=== PATIENT | female | born 1945 | race Caucasian/White ===

== ENCOUNTER 2024-08-26 14:12 | Inpatient (IN) | payer MEDICARE, OTHER, SELFPAY ==
[2024-08-26] VITALS (16 sets, daily range): BP systolic 113–152; BP diastolic 45–75; BMI 28.8
--- NOTE | 2024-08-26 08:03 | ED.GENMED ---
History of Present Illness
General
Chief Complaint: Chest Pain
Time Seen by Provider: 08/26/24 08:03
History of Present Illness
History of Present Illness:
TIME OF INITIAL ENCOUNTER: 8:05 AM
HPI: The patient presents with shortness of breath over the past week and feels somewhat improved after she was given steroids by her general practitioner. She was feeling improved when she was on steroids. The symptoms of shortness of breath
worsen when she exerts herself. Today she developed chest pressure and the chest pain resolved after she received nitroglycerin and aspirin by EMS. She states that she had a coronary catheterization about 15 years ago and she reports it being
normal. She has some minimal ankle swelling intermittently but not currently.
EXAM:
GENERAL: Well appearing in mild distress related to increased work of breathing
HEENT: Moist oral mucosa
CARDIOVASCULAR: No murmurs, normal heart rate, regular rhythm, No chest wall tenderness
PULMONARY: Slightly increased work of breathing and borderline tachypneic, decreased breath sounds equally without wheeze
ABDOMEN: Soft with no peritoneal signs, no tenderness
NEUROLOGIC: Good strength all extremities, no coordination deficits
PSYCHIATRIC: Appropriate mental status, normal insight and judgement
EXTREMITIES: Nontender, no edema particularly no ankle edema, no calf tenderness, moves all extremities equally
SKIN: No rash, no lesions
NUMBER AND COMPLEXITY OF PROBLEMS ADDRESSED AT THE ENCOUNTER
� Chronic conditions affecting care: COPD/former smoker, hyperlipidemia, diabetes, multiple abdominal surgeries
� Acute Exacerbation and/or Progression of Chronic Illness: This is an acute problem
� Differential Diagnosis includes: COPD exacerbation, ACS pneumonia, bronchitis
AMOUNT AND/OR COMPLEXITY OF DATA TO BE REVIEWED AND ANALYZED
� I performed an independent evaluation of and my interpretation is:
EKG: Sinus 91, inferior ST abnormality slightly more prominent in comparison to 08/04/2022
CT:
X-rays: Chest x-ray shows no acute abnormality, hyperaeration again seen
Laboratory Studies: White count hemoglobin normal, chemistries unremarkable with exception of glucose of 193, troponin 0.108
Other:
� Review of other/old records: I reviewed records, the patient was admitted for COPD exacerbation and July 2022 and at that time received both steroids and antibiotics. Echo showed an EF of 50 to 55% with no wall motion
abnormalities in July 2022
� Clinical information was obtained by an independent historian: None needed, but I did speak to family at bedside
� Prescriptions/Medications Considered but not given:
� Further testing considered but not performed:
RISK OF COMPLICATIONS AND/OR MORBIDITY OR MORTALITY OF PATIENT MANAGEMENT
� Social determinants of health affecting care: Lives at home
� Discussion with other providers: Given the slightly abnormal EKG, I notified Dr. Christensen at 8:24 AM. He has agreed to evaluate the patient in the emergency department�since troponin elevated with abnormal EKG, he recommends
treating as ACS. Hospitalist for admission.
� Escalation of care including admission/observation vs risk of discharge considered: Patient presents with shortness of breath in the setting of COPD as well as chest tightness that resolved with nitroglycerin (and received
aspirin by EMS) and has a slightly changed EKG.
ANY OTHER UPDATES:
9 AM: Troponin elevated. However, patient is chest pain free after receiving nitroglycerin by EMS. Family does report a remote history of bleeding ulcer but will place on heparin for now. Her hemoglobin is normal. She denies any rectal bleeding
recently. We also tried DuoNeb and steroids.
Past History
Past History
ED Past Medical History: COPD, Hypercholesterolemia and NIDDM
ED Past Surgical History: Appendectomy, Cholecystectomy, Gynecological and Tonsilectomy
Social History
Tobacco: Former smoker
Alcohol: Occasional
Drug: None
Personal:
Living: with family
Employment: Retired
Family History
Family History: Other (Noncontributory)
Phy Exam
Physical Exam
Physical Exam:
See HPI
Scores
Heart Score for Chest Pain Patients
STEMI patient?: No
History: Moderately Suspicious
ECG: Nonspecific Repolarization
Age: >/= 65 years
Risk Factors: >/= 3 Risk Factors or History of CAD
Troponin: >/= 3 x Normal Limit
Heart Score for Chest Pain Patients: 8
Heart Score Risk: 72.7 % MACE over next 6 weeks
Course
Orders/Labs/Results
Orders:
Orders
08/26/24 08:01
EKG [Electrocardiogram (*1)] Urgent
Reason for Study: Chest Pain
CXR2 [CR Chest - 2 Views ] Urgent
Comment:
Reason For Exam: chest pain
08/26/24 08:02
EKG- Treatment ONCE
08/26/24 08:13
Ipratropium/Albuterol Sulfate [Duoneb] 3 ml INH R NOW STA
MethylPREDNISolone PF [Solu-Medrol Pf] 125 mg IV NOW STA
08/26/24 08:15
PTT Urgent
Comment: Obtain baseline before beginning heparin infusion if not already collected
08/26/24 08:22
CMP [Comprehensive Metabolic Panel] Urgent
Complete Blood Count/With Diff Urgent
NT-proBNP Urgent
Troponin I Urgent
08/26/24 08:30
EKG- Treatment ONCE
08/26/24 09:00
Electrocardiogram (*1) Urgent
Reason for Study: Chest Pain
Other Reason for Exam: repeat, abnormal ekg
08/26/24 09:04
Heparin 4,000 units IV NOW STA
Nursing to Place Non Medication Order As Directed
Physician Order: PTT 6 hours after initial start of Heparin infusion
08/26/24 09:15
Heparin 55081 Units/250 ml 25,000 units in 250 ml IV PER PROTOCOL
Weight to be used for heparin protocol in kilograms (kg):: 74.8
Protocol:: Cardiac Tx/Acute Coronary
PTT Goal Range to be used:: PTT 73 to 111 seconds
Order type:: Initial
INITIAL Infusion Dose (UNITS/KG/hr) & then follow protocol:: 12 units/kg/hr
Infusion Dose in UNITS/hr & then follow protocol (UNITS/hr):: 900
INFUSION RATE in mL/hr & then follow protocol (mL/hr):: 9
PTT less than or equal to 64 seconds:: Increase rate by 200 units/hr (+ 2 mL/hr)
PTT 64.1 to 72.9 seconds:: Increase rate by 100 units/hr (+ 1 mL/hr)
PTT 73 to 111 seconds:: Target Range. No change in rate.
PTT 111.1 to 130.9 seconds:: Decrease rate by 100 units/hr (- 1 mL/hr)
PTT 131 to 199.9 seconds:: HOLD for 1 hr. Then decrease rate by 200 units/hr (- 2 mL/hr)
PTT greater than or equal to 200 seconds:: HOLD for 2 hrs & Notify Provider. Then decrease by 200 units/hr (-
2 mL/hr)
Lab follow-up:: Each change, PTT q6h until 2 consecutive are therapeutic. Then PTT
daily.
Abnormal Lab Results
08/26/24
08:22
Hct 35.8 L %
(37.0-47.0)
Absolute Lymphs (auto) 0.7 L 10^3/uL
(1.2-3.4)
Absolute Monos (auto) 0.7 H 10^3/uL
(0.1-0.6)
Lymphocytes % 12.0 L %
(20.5-51.1)
Monocytes % 11.4 H %
(1.7-9.3)
Glucose 193 H mg/dl
(70-99)
Troponin I 0.108 H* ng/ml
Total Protein 6.1 L g/dl
(6.3-8.2)
08/26/24 08:22
08/26/24 08:22
Vital Signs
Initial and Last Documented VS:
Initial Vital Signs
Temp Pulse Resp BP Pulse Ox
36.6 C 90 22 113/60 97
08/26/24 08:02 08/26/24 08:02 08/26/24 08:02 08/26/24 08:02 08/26/24 08:02
Last Documented Vital Signs
Temp Pulse Resp BP Pulse Ox
36.6 C 88 19 113/60 98
08/26/24 08:02 08/26/24 08:15 08/26/24 08:15 08/26/24 08:05 08/26/24 08:16
*Critical Care Note
Total Time (30-74mins, 75-104mins- exclusive of procedures): Not Applicable
ED Attending Note
-
Portions of this chart may have been created with voice recognition software.� Occasional wrong word or��sound alike� substitutions may have occurred due to the inherent limitations of voice recognition software.
Discharge Plan
Departure
Patient Disposition: Admit
Date of Disposition: 08/26/24
Time of Disposition: 09:23
Presentation/result/management discussed w/ accepting MD/DO: Hospitalist
Discharge Problem:
Acute coronary syndrome
Prescriptions:
No Action
cholestyramine (with sugar) 378 GM powder
1 dose PO DAILY
promethazine-DM 6.25-15 mg/5 mL syrup
5 ml PO QID PRN (Reason: cough)
metformin 500 mg Tablet
500 mg PO DAILY 30 Days Qty: 30 0RF
atorvastatin 20 mg Tablet
20 mg PO QPM 30 Days Qty: 30 0RF
Spiriva Respimat 2.5 mcg/actuation Mist
2 puff inhalation R DAILY 30 Days Qty: 1 0RF
doxycycline hyclate 100 mg Capsule
100 mg PO Q12H 2 Days Qty: 4 0RF
albuterol sulfate 2.5 mg /3 mL (0.083 %) Solution For Nebulization
2.5 mg inhalation R Q4HPRN PRN (Reason: SOB, COUGH, WHEEZE) 30 Days Qty: 1 0RF
amlodipine 5 mg tablet
5 mg PO DAILY 30 Days Qty: 30 0RF
prednisone 10 mg Tablet
See Rx Instructions .ROUTE .COMPLEX Qty: 25 0RF
Rx Instructions:
Take By Mouth:
40 mg daily x2 days, 30 mg daily x2 days,
20 mg daily x2 days, 10 mg daily x2 days.
albuterol sulfate 90 mcg/actuation Hfa Aerosol Inhaler
2 puff INHALATION R Q6 PRN (Reason: sob/wheezing) 30 Days Qty: 1 0RF
fluticasone furoate-vilanterol 200-25 mcg/dose blister with device
1 inh INHALATION R DAILY 30 Days Qty: 1 0RF
Interventions
Interventions:
*Risk Screen - Suicide Last Done: 08/26/24 08:02
*General Assessment Last Done: 08/26/24 08:02
*Neglect/Abuse Screening Last Done: 08/26/24 08:02
ED- Fall Risk Assessment Last Done: 08/26/24 08:16
*ED COVID-19 Vaccine History Last Done: 08/26/24 08:02
ED- Cardiac Assessment Last Done: 08/26/24 08:16
Discharge Date and Time
Print Language: ESTONIAN
[2024-08-26 08:37] LABS: % Basophils 0.2 % (0-2); % Eosinophils 4.3 % (0-6); % Immature Granulocytes 0.5 % (0-0.5); % Monocytes 11.4 % (1.7-9.3); % Neutrophils 71.6 % (42.2-75.2); Absolute Eosinophils 0.3 10^3/uL (0-0.7); Absolute Lymphocytes 0.7 10^3/uL (1.2-3.4); Absolute Monocytes 0.7 10^3/uL (0.1-0.6); Absolute Neutrophils 4.2 10^3/uL (1.4-6.5); Hematocrit 35.8 % (37.0-47.0); Hemoglobin 12.2 g/dL (12.0-16.0); Mean Corp Hgb Conc. 34.1 g/dL (33.0-37.0); Mean Corpuscular Volume 82.3 fL (81.0-99.0); Mean Platelet Volume 9.2 fL (7.4-10.4); Nucleated Red Blood Cells % 0 %; Platelet Count 272 10^3/uL (130-400); Red Blood Cell Count 4.35 10^6/uL (4.20-5.40); Red Cell Dist. Width 12.5 % (11.5-14.5); White Blood Cell Count 5.8 10^3/uL (4.8-10.8)
[2024-08-26] MEDS: DUONEB 3 ML INH ×2 (08:40→19:55)
[2024-08-26] MEDS: SOLU-MEDROL PF 125 MG IV (08:40)
[2024-08-26 08:48] LABS: ALT (SGPT) 15 U/L (0-35); AST (SGOT) 18 U/L (14-36); Albumin 3.6 g/dl (3.5-5.0); Alkaline Phosphatase 99 U/L (38-126); Blood Urea Nitrogen 8 mg/dl (7-17); Calcium 9.1 mg/dl (8.4-10.2); Carbon Dioxide 24 mmol/L (22-30); Chloride 99 mmol/L (98-107); Estimated Creatinine Clearance 64 ml/min; Glucose 193 mg/dl (70-99); Potassium 3.7 mmol/L (3.5-5.1); Sodium 136 mmol/L (135-145); Total Bilirubin 0.8 mg/dl (0.2-1.3); Total Protein 6.1 g/dl (6.3-8.2); eGFR > 60.00
[2024-08-26 09:03] LABS: NT-proBNP 772 pg/ml; Troponin I 0.108 ng/ml
[2024-08-26] MEDS: HEPARIN 4000 UNITS IV (09:16)
[2024-08-26] MEDS: HEPARIN 25000 UNITS/250 ML IV (09:17)
[2024-08-26 09:29] LABS: APTT 24.6 Sec (23.4-35.0)
--- NOTE | 2024-08-26 10:07 | CON.CAR ---
Addendum entered and electronically signed by Brenton Fox MD 08/26/24 13:40:
I saw and examined the patient.
The Traffic Checker's note was reviewed and I agree with the note.
Comment: Briefly, 79-year-old woman past medical history of severe COPD who presents for evaluation of chest discomfort which came on this morning at rest and was relieved with sublingual nitroglycerin given to her by EMS concerning for angina.
Initial troponin was elevated at 0.1 and then sedrick to 1.1 consistent with NSTEMI.
Medical management with aspirin, high intensity statin and heparin drip.
Continue home amlodipine as antianginal.
Ideally would start metoprolol; will need to monitor her respiratory status carefully given history of severe COPD.
Tentative plan for left heart catheterization tomorrow
Discussed with daughter at bedside and hospitalist
Original Note:
Consultation
Consultation Request
Date/Time Consultation Requested: 08/26/24
Date/Time Consultation Performed: 08/26/24
Requesting Provider: Dr. Ramírez in the ER
Performing Provider: Dr. Fox
Reason for Consultation: Chest pain, elevated Troponin
Medical History
-
History of Present Illness:
Patient came to ER today with CP that started at 0530 this morning and cardiology is consulted after her troponin was found to be elevated. 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
trazodone BID, but patient instead took in PM only and half the dose that her PCP prescribed and initially this helped her insomnia, but then she felt tired all of the time and the insomnia returned so about a week and a half ago she stopped
trazodone. Patient says that 6 days ago she was walking in the grocery store and had central to left-sided chest pain that improved with resting. She was SOB as well. Patient does not normally have chest pain walking the grocery store and this was
unusual. Patient then able to drive to a friend's home and then home, but has not tried to walk a long distance since that episode. Patient was awake through last night with insomnia and started with central to left-sided chest pain around 0530 this
morning and it lasted for an hour and she called her family who called 911. Paramedics gave patient NTG SL x1 that resolved pain completely and pain had not recurred. Initial ECG in the ER without ST elevations and Troponin was 0.108. Heparin gtt
started. Patient also reporting intermittent dependent edema described as worse when she is on her feet and better after laying down. Also reports weight gain and bloating, but no orthopnea.
PMH:
COPD
Emphysema
Former smoker
HTN
Hyperlipidemia
Hyperglycemia
Past Medical History
Past Medical History: Other (in HPI)
Past Surgical History: Appendectomy, Cholecystectomy and Gynecological ([facility])
Social History
Tobacco: Former Smoker (quit 2009)
Alcohol: None
Drug: None
Living: Alone
Family History
Family History: CAD, Diabetes, Hypertension and Other (COPD)
Allergies / Home Medications
Allergy/AdvReac Type Severity Reaction Status Date / Time
azithromycin [From Zithromax] Allergy Rash Verified 08/04/22 11:25
Penicillins Allergy Hives Verified 08/04/22 11:25
oxycodone AdvReac Vomiting Verified 08/04/22 11:25
�Medication �Instructions �Recorded �Confirmed �Type
amlodipine 5 mg tablet 5 mg PO DAILY 30 days #30 tabs 08/07/22 08/26/24 Rx
albuterol sulfate 2.5 mg/3 mL 2.5 mg inhalation R Q4 08/26/24 08/26/24 History
(0.083 %) solution for nebulization
albuterol sulfate 90 mcg/actuation 1 puff inhalation R Q4HPRN PRN 08/26/24 08/26/24 History
aerosol inhaler sob/wheezing
cholecalciferol (vitamin D3) 25 25 mcg PO DAILY 08/26/24 08/26/24 History
mcg (1,000 unit) tablet (Vitamin
D3)
cholestyramine (with sugar) 4 gram 4 g PO DAILY 08/26/24 08/26/24 History
powder for susp in a packet
fluticasone fur. 100 mcg-umeclid 1 inh inhalation DAILY 08/26/24 08/26/24 History
62.5 mcg-vilant 25 mcg
inhalat.powder (Trelegy Ellipta)
glimepiride 2 mg tablet 2 mg PO DAILY 08/26/24 08/26/24 History
pitavastatin calcium 2 mg tablet 2 mg PO DAILY 08/26/24 08/26/24 History
sertraline 25 mg tablet 25 mg PO DAILY 08/26/24 08/26/24 History
Review of Systems
-
History Source: Patient and Family (2 daughters sitting bedside helping with HPI)
All other systems: Negative unless noted
Physical Exam
Vital Signs
Temp Pulse Resp BP Pulse Ox
97.8 F 88 19 113/60 98
08/26/24 08:02 08/26/24 08:15 08/26/24 08:15 08/26/24 08:05 08/26/24 08:16
GEN: NAD. AAOx3
HEENT: EOMI, MMM
LUNGS: RA. Decreased BS bases B/L without wheeze or rales
CV: SR on tele. Reg, S1/S2, no murmur
ABD: soft, BS+, NT, ND
EXT: No clubbing, cyanosis, lesions or edema B/L
NEURO: Gross non-focal
SKIN: Warm, dry and pink. No rash
Lab Results
08/26/24 08:22
08/26/24 08:22
Troponin I 0.108 ng/ml H* 08/26/24 08:22
Npn-H-Injjnusuesd Pept 772 pg/ml 08/26/24 08:22
Impression / Plan
-
PCP: Dr. Olmstead
Card: None
Pulm: Dr. Marcus
Impression:
Chest pain, possible ACS
Elevated Troponin
COPD
Emphysema
Former smoker
HTN
Hyperlipidemia
Hyperglycemia
Echo 08/06/2022: EF 50 to 55%, no WMA, no significant valvular abnormalities
Plan:
-Patient came to ER today with CP that started at 0530 this morning and cardiology is consulted after her troponin was found to be elevated. 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
trazodone BID, but patient instead took in PM only and half the dose that her PCP prescribed and initially this helped her insomnia, but then she felt tired all of the time and the insomnia returned so about a week and a half ago she stopped
trazodone. Patient says that 6 days ago she was walking in the grocery store and had central to left-sided chest pain that improved with resting. She was SOB as well. Patient does not normally have chest pain walking the grocery store and this was
unusual. Patient then able to drive to a friend's home and then home, but has not tried to walk a long distance since that episode. Patient was awake through last night with insomnia and started with central to left-sided chest pain around 0530 this
morning and it lasted for an hour and she called her family who called 911. Paramedics gave patient NTG SL x1 that resolved pain completely and pain had not recurred. Initial ECG in the ER without ST elevations and Troponin was 0.108. Heparin gtt
started. Patient also reporting intermittent dependent edema described as worse when she is on her feet and better after laying down. Also reports weight gain and bloating, but no orthopnea.
-ECG reviewed by me is SR without acute ST changes.
-Initial Troponin 0.108 and second Troponin ordered by me for now
-Urgent bedside echo ordered by me and I called the echo dept to coordinate care.
-Reviewed plan with patient and family to trend Troponin and check urgent bedside echo in the ER. Pending echo and Troponin will cont with Heparin gtt for now and cardiac cath pending those results.
-Check CVE. Patient was taking pitavastatin 2 mg daily prior to admission.
-BP 113/60. Patient did not take her usual dose of amlodipine 5 mg daily.
-Check HgbA1c
--- NOTE | 2024-08-26 11:35 | HPS.HSE ---
Family Physician
-
Family Physician: Wood Olmstead
Chief Complaint
-
chest pressure
History of Present Illness
Ms. Mena Post is a 79 yo woman with hx COPD, HLD, NIDDM, recent outpatient treatment of shortness of breath with steroids presents to the ER with chest pressure.
She was treated for a COPD flare earlier this month and improved with steroids. She states she didn't feel well and woke up with chest pressure and feeling that she could not move left arm well, it felt heavy. EMS called, patient received nitro
and asa 324mg with resolution of pain.
No fevers/chills. No recent congestion. She states this episode did not feel like typical COPD flare. She had chest pressure 2 weeks ago while at supermarket, drove home and then it went away.
No abdominal pain. No nausea/vomiting/diarrhea. No LE swelling.
Medical History
Past Medical History
Past Medical History: Reports Other
Additional Past Medical History:
COPD,
Hypercholesterolemia
NIDDM
Appendectomy,
Cholecystectomy,
Gynecological
Tonsillectomy
Past Surgical History: Reports Other
Additional Past Surgical History:
See above
Social History
Tobacco: Former Smoker
Alcohol: None
Drug: None
Family History
Family History: Not pertinent
Allergies / Home Medications
Allergies reflects when Allergies were last updated in [facility].
Home Medications with original date entered in [facility]
Allergy/Medication List:
Allergies
Allergy/AdvReac Type Severity Reaction Status Date / Time
azithromycin [From Zithromax] Allergy Rash Verified 08/04/22 11:25
Penicillins Allergy Hives Verified 08/04/22 11:25
oxycodone AdvReac Vomiting Verified 08/04/22 11:25
Home Medications
amlodipine 5 mg tablet 5 mg PO DAILY 30 days #30 tabs 08/07/22
albuterol sulfate 2.5 mg/3 mL (0.083 %) solution for nebulization 2.5 mg inhalation R Q4 08/26/24
albuterol sulfate 90 mcg/actuation aerosol inhaler 1 puff inhalation R Q4HPRN PRN sob/wheezing 08/26/24
cholecalciferol (vitamin D3) 25 mcg (1,000 unit) tablet (Vitamin D3) 25 mcg PO DAILY 08/26/24
cholestyramine (with sugar) 4 gram powder for susp in a packet 4 g PO DAILY 08/26/24
fluticasone fur. 100 mcg-umeclid 62.5 mcg-vilant 25 mcg inhalat.powder (Trelegy Ellipta) 1 inh inhalation DAILY 08/26/24
glimepiride 2 mg tablet 2 mg PO DAILY 08/26/24
pitavastatin calcium 2 mg tablet 2 mg PO DAILY 08/26/24
sertraline 25 mg tablet 25 mg PO DAILY 08/26/24
Review of Systems
-
History Source: Patient
A 12 point ROS was completed and negative except as noted: Yes
Physical Exam
Vital Signs
Vital Signs
Temp Pulse Resp BP Pulse Ox
97.8 F 88 19 113/60 98
08/26/24 08:02 08/26/24 08:15 08/26/24 08:15 08/26/24 08:05 08/26/24 08:16
Physical Exam
General: No Apparent Distress
HEENT: PERRLA
Respiratory: Clear; No Wheezes
Cardiac: S1/S2 and Regular Rhythm
GI: Soft and Non Tender
Musculoskeletal: No Edema
Skin: Warm and Dry; No Rash
Neuro: AO x 3
Psych: Calm
Laboratory Results
-
08/26/24 08:22
08/26/24 08:22
Laboratory Results
APTT 24.6 Sec (23.4-35.0) 08/26/24 08:15
Total Bilirubin 0.8 mg/dl (0.2-1.3) 08/26/24 08:22
AST 18 U/L (14-36) 08/26/24 08:22
ALT 15 U/L (0-35) 08/26/24 08:22
Alkaline Phosphatase 99 U/L (38-126) 08/26/24 08:22
Troponin I 0.108 ng/ml H* 08/26/24 08:22
Data Reviewed
-
Diagnostic Radiology: Report Reviewed by me
Lab Data: Labs Reviewed by me
Impression/Plan
-
Ms. Mena Post is a 79 yo woman with hx COPD, HLD, NIDDM, recent outpatient treatment of shortness of breath with steroids presents to the ER with chest pressure resolved with nitroglycerin.
Triage VS: T 36.6 C, P 90, RR 22, BP 113/60, SpO2 97%
LABS: WBC 5.8, Hg 12.2, PLT 272, Na 136, K+ 3.7, CO2 24, BUN 8, Cr 0.7, Glucose 193, liver enzymes WNL, Trop 0.108, BNP 772
EKG NSR @ 91; slight ALFRED aVF < 1mm
CXR
IMPRESSION:
No acute disease of the chest.
TTE
CONCLUSIONS
Normal left ventricular size. Low normal left ventricular systolic function. No
regional wall motion abnormalities are seen. LV ejection fraction is 50-55% by
volumetric assessment. Mild concentric left ventricular hypertrophy. Normal
diastolic function.
Normal right ventricular size and function.
No significant valvular pathology
NSTEMI
-patient given Aspirin 324mg and NTG x 1 by EMS
-Heparin gtt started
-appreciate cardiology consult
-admit to IVU
-trend Troponin
-s/p TTE - results above
-asa 81mg PO QD
-STEEL BUFFER statin
-NPO after MN for possible cardiac cath
COPD'
-s/p steroids in the ER
-no active wheezing on exam
-duonebs and home inhaler
Essential HTN
-STEEL BUFFER Amlodipine
NIDDM
-hold STEEL BUFFER Glimepiride
-ISS low
-diabetic diet
DVT PPx Heparin gtt
DNR - discussed on admission
76 minutes spent on patient care
[2024-08-26 13:49] LABS: HDL Cholesterol 44 mg/dl; LDL Cholesterol, Calculated 99 mg/dl; Total Cholesterol 168 mg/dl (50-199); Triglyceride 127 mg/dl (10-149); Very Low Density Lipoprotein 25 mg/dl (0-30)
[2024-08-26 14:46] LABS: Glycohemoglobin (HgbA1c) 6.5 % (4.0-5.6)
[2024-08-26 16:55] LABS: APTT 48.1 Sec (23.4-35.0)
[2024-08-26 18:44] LABS: Glucose - Point of Care 290 mg/dl (70-99)
--- NOTE | 2024-08-26 18:55 | EDRN ---
Patient taken to room 2252 on monitor with Heparin drip infusing at 1100 units/HR. Patient remained chest pain free.
[2024-08-26] MEDS: NOVOLOG FLEXPEN-LOW RESISTANCE 3 UNITS SC (19:11)
[2024-08-26] MEDS: SYMBICORT 80/4.5 MCG INHALER 2 PUFF INH (19:55)
[2024-08-26] MEDS: TOPROL XL 12.5 MG PO (20:10)
--- NOTE | 2024-08-26 20:51 | PTCARENOTE ---
Received patient at change of shift. Patient had just been brought up from ED @ 1830. Admission questions completed. Vitals stable. Heparin drip running at 1100 units/hr. No c/o of chest pain at this time. Discussed plan of care for evening. Patient
verbalized understanding. Call arambula within reach.
[2024-08-26 22:42] LABS: Glucose - Point of Care 290 mg/dl (70-99)
[2024-08-27] VITALS (15 sets, daily range): BP systolic 90–137; BP diastolic 39–99
[2024-08-27 00:20] LABS: APTT 48.3 Sec (23.4-35.0)
[2024-08-27] MEDS: HEPARIN 25000 UNITS/250 ML IV ×2 (06:01→17:55)
[2024-08-27] MEDS: DUONEB 3 ML INH ×3 (07:13→20:19)
[2024-08-27] MEDS: SYMBICORT 80/4.5 MCG INHALER 2 PUFF INH ×2 (07:14→20:19)
[2024-08-27] MEDS: SPIRIVA RESPIMAT 2.5 MCG 2 PUFF INH (07:14)
--- NOTE | 2024-08-27 07:56 | W.PN.HOSP.TC ---
Today's Communication/Plan
-
NPO for cardiac cath
Assessment / Plan
Assessment / Plan
Ms. Mena Post is a 79 yo woman with hx COPD, HLD, NIDDM, recent outpatient treatment of shortness of breath with steroids presents to the ER with chest pressure resolved with nitroglycerin.
CXR
IMPRESSION:
No acute disease of the chest.
TTE
CONCLUSIONS
Normal left ventricular size. Low normal left ventricular systolic function. No
regional wall motion abnormalities are seen. LV ejection fraction is 50-55% by
volumetric assessment. Mild concentric left ventricular hypertrophy. Normal
diastolic function.
Normal right ventricular size and function.
No significant valvular pathology
NSTEMI
-patient given Aspirin 324mg and NTG x 1 by EMS
-Heparin gtt started
-appreciate cardiology consult
-admitted to IVU
-trend Troponin - up to 2.16
-s/p TTE - results above
-asa 81mg PO QD
-SHIPPING ASSISTANT statin - increase dose and make in evenings
-new start metoprolol
-NPO for cath
COPD'
-s/p steroids in the ER
-no active wheezing on exam
-duonebs and home inhaler
Essential HTN
-SHIPPING ASSISTANT Amlodipine
NIDDM
-hold SHIPPING ASSISTANT Glimepiride
-ISS low
-diabetic diet
DVT PPx Heparin gtt
FULL CODE
Anticipated Discharge: 24 - 48 hours
Subjective/Interval History
-
Date of Service: August 27, 2024
no chest pain
slept well
Objective Data
-
Labs:
Laboratory Results
08/26/24 08/27/24 08/27/24
23:39 06:00 06:30
WBC Pending
Hgb Pending
Hct Pending
Plt Count Pending
APTT 48.3 H Pending
Sodium Pending
Potassium Pending
Chloride Pending
Carbon Dioxide Pending
BUN Pending
Creatinine Pending
Glucose Pending
Calcium Pending
Vital Signs:
Vital Signs
Temp Pulse Resp BP Pulse Ox
97.6 F 88 16 137/67 91
08/27/24 03:40 08/27/24 07:16 08/27/24 07:16 08/27/24 03:40 08/27/24 03:40
I&O
08/26/24 08/27/24 08/28/24
06:59 06:59 06:59
Intake Total 144 / 144
Output Total 300 / 300
Balance -156 / -156
Review of Systems
-
History Source: Patient
All other systems: Reviewed and negative
Physical Exam
-
General: Well Developed and Comfortable
HEENT: Normocephalic
Respiratory: Clear to Auscultation and Decreased Breath Sounds
Cardiac: Regular Rhythm and S1/S2
GI: Soft
Musculoskeletal: Normal Gait & Station
Neuro: Awake, Alert, Oriented and AO x 3
Psych: Calm
Data Reviewed
-
Diagnostic Radiology: Report Reviewed by me
Labs: Labs Reviewed by me
[2024-08-27] MEDS: VITAMIN D3 (cholecalciferol) 25 MCG PO (08:24)
[2024-08-27] MEDS: ZOLOFT 25 MG PO (08:24)
[2024-08-27] MEDS: TOPROL XL 12.5 MG PO ×2 (08:24→19:48)
[2024-08-27] MEDS: LOW STRENGTH ASPIRIN 81 MG PO (08:24)
[2024-08-27] MEDS: NORVASC 5 MG PO (08:24)
[2024-08-27] MEDS: NOVOLOG FLEXPEN-LOW RESISTANCE 1 UNITS SC (08:37)
[2024-08-27 08:38] LABS: Hematocrit 36.6 % (37.0-47.0); Hemoglobin 12.4 g/dL (12.0-16.0); Mean Corp Hgb Conc. 33.9 g/dL (33.0-37.0); Mean Corpuscular Volume 82.6 fL (81.0-99.0); Mean Platelet Volume 8.9 fL (7.4-10.4); Platelet Count 319 10^3/uL (130-400); Red Blood Cell Count 4.43 10^6/uL (4.20-5.40); Red Cell Dist. Width 12.5 % (11.5-14.5); White Blood Cell Count 7.9 10^3/uL (4.8-10.8)
[2024-08-27 08:44] LABS: Glucose - Point of Care 159 mg/dl (70-99)
[2024-08-27 08:58] LABS: Blood Urea Nitrogen 12 mg/dl (7-17); Calcium 9.1 mg/dl (8.4-10.2); Carbon Dioxide 26 mmol/L (22-30); Chloride 103 mmol/L (98-107); Estimated Creatinine Clearance 64 ml/min; Glucose 174 mg/dl (70-99); Magnesium 1.8 mg/dl (1.6-2.3); Potassium 3.9 mmol/L (3.5-5.1); Sodium 138 mmol/L (135-145); eGFR > 60.00
[2024-08-27 09:01] LABS: APTT 116.4 Sec (23.4-35.0)
[2024-08-27] MEDS: DUONEB INH ×2 (09:34→17:45)
[2024-08-27] MEDS: NSS 1000 IV (11:19)
[2024-08-27] MEDS: NOVOLOG FLEXPEN-LOW RESISTANCE SC ×2 (11:44→17:52)
--- NOTE | 2024-08-27 11:46 | PTCARENOTE ---
Pt received this am with no c/o of chest pain. Mild sob noted with exertion. Room air sat 98%. Pt oob independently, gait steady. Returned post cath at 1100. Right rad band intact and WNL.
[2024-08-27 11:47] LABS: Glucose - Point of Care 131 mg/dl (70-99)
--- NOTE | 2024-08-27 11:57 | CONSULT.CT ---
Documented by User: YURY Nick 08/27/24 12:18
Consultation
-
Date/Time Consultation Requested: 08/27/24 1120
Date/Time Consultation Performed: 08/27/24 1200
Requesting Provider: Dina WYMAN
Performing Provider: Sigifredo COTTON for Red WYMAN
Reason for Consultation: CABG eval
Patient History
Physicians
Family Physician: Wood Olmstead
Past Medical History
Past Medical History: Hypercholesterolemia and Other
COPD
Emphysema
Former smoker
HTN
Hyperlipidemia
Hyperglycemia
Past Surgical History
Past Surgical History: Other
Appendectomy
Cholecystectomy
Gynecological
Tonsillectomy
Allergies
Allergy/AdvReac Type Severity Reaction Status Date / Time
morphine Allergy Mild Nausea / Unverified 08/26/24 20:21
Vomiting
azithromycin [From Zithromax] Allergy Rash Verified 08/04/22 11:25
oxycodone Allergy Vomiting Verified 08/26/24 18:39
Penicillins Allergy Hives-YEARS Verified 08/26/24 18:39
AGO
Home Medications
�Medication �Instructions �Recorded �Confirmed �Type
amlodipine 5 mg tablet 5 mg PO DAILY 30 days #30 tabs 08/07/22 08/26/24 Rx
albuterol sulfate 2.5 mg/3 mL 2.5 mg inhalation R Q4 08/26/24 08/26/24 History
(0.083 %) solution for nebulization
albuterol sulfate 90 mcg/actuation 1 puff inhalation R Q4HPRN PRN 08/26/24 08/26/24 History
aerosol inhaler sob/wheezing
cholecalciferol (vitamin D3) 25 25 mcg PO DAILY 08/26/24 08/26/24 History
mcg (1,000 unit) tablet (Vitamin
D3)
cholestyramine (with sugar) 4 gram 4 g PO DAILY 08/26/24 08/26/24 History
powder for susp in a packet
fluticasone fur. 100 mcg-umeclid 1 inh inhalation DAILY 08/26/24 08/26/24 History
62.5 mcg-vilant 25 mcg
inhalat.powder (Trelegy Ellipta)
glimepiride 2 mg tablet 2 mg PO DAILY 08/26/24 08/26/24 History
pitavastatin calcium 2 mg tablet 2 mg PO DAILY 08/26/24 08/26/24 History
sertraline 25 mg tablet 25 mg PO DAILY 08/26/24 08/26/24 History
Physical Exam
Vital Signs
Temp 97.4 F 08/27/24 08:04
Temp route: Oral 08/27/24 08:04
Pulse 68 08/27/24 11:04
Rhythm: Normal sinus rhythm 08/26/24 21:00
With- First Degree Heart Block, Sinus tachycardia 08/26/24 21:00
Resp Rate 18 08/27/24 11:04
Blood pressure 119/61 08/27/24 08:04
Blood pressure extremity used: Right upper arm 08/27/24 08:04
Position: Lying 08/27/24 08:04
MAP (cuff-Jose A Monitor) 67 08/27/24 08:04
SaO2 100 08/27/24 08:04
Oxygen Mode of Delivery Room air 08/27/24 08:04
Acceptable pain level during hospitalization? 1 08/26/24 08:02
Can the patient verbally communicate their pain? Yes 08/26/24 21:00
Pain scale ratin 08/26/24 19:45
Actual Weight 74.8 kg 08/26/24 08:19
Body Mass Index (BMI) 28.8 08/26/24 08:19
Labs
08/27/24 08:13
08/27/24 08:13
APTT 116.4 Sec (23.4-35.0) H 08/27/24 08:13
Hemoglobin A1c 6.5 % (4.0-5.6) H 08/26/24 08:22
Troponin I 2.340 ng/ml H* 08/27/24 08:13
Dyd-A-Nlvjlqgymim Pept 772 pg/ml 08/26/24 08:22

Documented by User: Donna Lima PA-C 08/27/24 14:32
Consultation
-
Performing Provider: Janie CLEMENT for Red WYMAN
Patient History
Physicians
Outpatient Hospitality Workers: None
Inpatient Hospitality Workers: [facility] (Brenton Fox MD.)
History of Present Illness
Patient is an extremely pleasant 79-year-old female with PMH significant for COPD/emphysema, former tobacco/smoking use (quit in 2009 prior to that smoked 1 to 2 packs/day x 40 years), HTN, HLD, NIDDMII, insomnia,and depression.
Patient states she typically does not sleep much and is up late. She experienced an episode of chest heaviness with associated shortness of breath and diaphoresis while laying in bed. Prior similar episode happened roughly 1 week ago while walking
at the grocery store. Patient called her family and then called EMS. Patient was taken to [facility]'s emergency department. Upon presentation to the emergency room the patient received 1 sublingual nitro tablet providing relief to chest
heaviness. Initial EKG revealed sinus rhythm with first-degree AV block at a rate of 91 bpm. Lab work revealed an elevated troponin at 0.108 followed by 1.140, ruling the patient in for non-ST elevated myocardial infarction. Troponin peaked at
2.610. Patient was admitted for further workup and management. She was started on a heparin drip and maintained with aspirin, high intensity statin, amlodipine as well as started on metoprolol. She was scheduled for cardiac catheterization today
on 08/27/2024.
Subsequent cardiac catheterization revealed multivessel coronary artery disease. Specific details are not yet known. Cardiac catheterization report currently pending. CT surgery was consulted for coronary artery bypass grafting evaluation.
Echocardiogram 08/26/24: [facility]
EF 50-55%
Trace MR
No /AI
No TS/TR, right heart pressures could not be determined
No PS/ID
LVSD: 32
LVDD: 44
Past Medical History
COPD
Emphysema
Former smoker/tobacco use (quit in 2009 prior to that smoked 1 to 2 PPD x 40 yrs)
HTN
Hyperlipidemia
Hyperglycemia
Depression
Insomnia
Past Surgical History
Appendectomy (57 years ago)
Cholecystectomy (2013)
Gynecological-[facility], gynecological procedure for vaginal atrophy [address] Evans
Tonsillectomy
Dental History
Noncontributory
Family History
Mother: at Age (74) and Cause of (Complications with congestive heart failure. Previously underwent bypass surgery)
Father: at Age (69) and Cause of (Complications with prostate cancer which metastasized to bone)
Family Medical History: CAD
Social History
Alcohol: Occasional
Drug: None
Tobacco: Former Smoker (Quit 10 years ago. Prior to that smoked 1 to 2 packs/day x 40 years)
Personal:
Living: Alone (Has 5 children that are nearby)
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
Review of Systems
-
History Source: Patient
General: Denies Fever, Weight Gain, Weight Loss or Fatigue
HEENT: Denies Visual Changes, Dysphagia, Hoarseness or Sore Throat
Respiratory: Reports SOB, BOONE, Cough and Other (COPD)
Cardiac: Reports Diaphoresis and Other (Chest heaviness); Denies Palpitations, Nausea or Vomiting
Abdomen/GI: Denies Abdominal Pain, Reflux, Indigestion, Diarrhea, Constipation or BRBPR
: Denies Dysuria, Frequency, Incontinence, Urgency or Hematuria
Musculoskeletal: Denies Myalgias, Arthralgias, Joint Pain or Edema
Skin: Denies Itching or Rash
Neurological: Denies CVA, TIA, Syncope, Dizzy, Numbness or Seizures
Physical Exam
Diagnostic Studies
Echocardiogram 08/26/24: [facility]
EF 50-55%
Trace MR
No /AI
No TS/TR, right heart pressures could not be determined
No PS/ID
LVSD: 32
LVDD: 44
EKG 08/26/24: SR, 1AVB (91 bpm)
CXR 08/26/24: COPD/emphysema
PFT's 12/11/22 (NOTE THESE PFT'S WERE DONE WHILE ON ORAL STEROIDS).
FEV1 1.19/53%
DLCO 7.97/39%
Exam
General: Well Developed, Well Nourished and No Apparent Distress
HEENT: Normocephalic, Atraumatic, PERRLA and EOMI
Neck: Trachea Midline; Negative Carotid Bruit
Respiratory: Clear; Negative Wheezes, Crackles, Rhonchi or Accessory Muscle Use
Cardiac: S1/S2 and Regular Rhythm; Negative Murmur, Rub or Gallop
GI: Soft, Non Tender, Non Distended and Other (Diminished bowel sounds)
Rectal: Deferred by Provider
Skin: Warm and Dry; Negative Rash
Neuro: AO x 3, No Motor Deficits and CN X-XII Intact
Extremities: Negative Upper Level Edema, Lower Level Edema, Upper Level Cyanosis, Lower Level Cyanosis, Upper Level Clubbing or Lower Level Clubbing
Psych: Calm
Assessment / Plan
-
Assessment:
79-year-old female with PMH significant for:
COPD/emphysema
Former tobacco/smoking use (quit in 2009 prior to that smoked 1 to 2 packs/day x 40 years)
HTN/HLD
NIDDMII
Insomnia
Depression
Now found to have newly diagnosed:
Unstable angina
NSTEMI, peak troponin 2.610
Coronary artery disease
Plan:
Patient's case to be discussed with attending physician.
Routine cardiothoracic surgery preoperative workup will be initiated.
Given the patient's pulmonary history (patient follows with Dr. Leni Marcus MD) we will order full PFTs. Previous PFTs were done in 2022 while on oral steroids (FEV1 1.19/53% DLCO 7.97/39%).
Patient's STS stratification score will be calculated once all data is gathered.
Further details regarding patient's care/intervention will be decided after attending physicians full review.
--- NOTE | 2024-08-27 12:49 | CM ---
spoke to pt in room, she is previndep, lives alone in a 2 story home with a first floor set up and 2 steps toenter. she denies dc planning needs. plan is for dc to home when medically stabe.
[2024-08-27] MEDS: LIPITOR 40 MG PO (17:48)
[2024-08-27 17:51] LABS: Glucose - Point of Care 144 mg/dl (70-99)
--- NOTE | 2024-08-27 19:41 | PTCARENOTE ---
Received patient at change of shift. A&O x3, visiting family bedside. Vitals stable. Heparin gtt running at 900 units/hr through left AC. Right radial site clean, dry, and intact. Little ecchymotic at site, hand very ecchymotic. Soft to touch.
Discussed plan of care. Patient verbalized understanding. Call arambula within reach.
[2024-08-27 21:40] LABS: Glucose - Point of Care 221 mg/dl (70-99)
[2024-08-28] VITALS (7 sets, daily range): BP systolic 125–154; BP diastolic 46–71
[2024-08-28 00:05] LABS: APTT 31.6 Sec (23.4-35.0)
[2024-08-28 05:28] LABS: B.E. 3.2 mmol/L; HCO3 27.9 mmol/L (21-28); O2 Saturation % 98.7 % (94-98); PCO2 42 mmHg (32-35); PO2 80 mmHg (83-108); pH 7.43 (7.35-7.45)
[2024-08-28 05:32] LABS: O2 Therapy ROOM AIR
[2024-08-28] MEDS: SPIRIVA RESPIMAT 2.5 MCG INH (07:09)
[2024-08-28] MEDS: DUONEB 3 ML INH ×3 (07:10→15:01)
[2024-08-28] MEDS: SYMBICORT 80/4.5 MCG INHALER 2 PUFF INH ×2 (07:10→19:10)
--- NOTE | 2024-08-28 08:32 | W.PN.HOSP.TC ---
Today's Communication/Plan
-
see plan
Assessment / Plan
Assessment / Plan
Ms. Mena Post is a 79 yo woman with hx COPD, HLD, NIDDM, recent outpatient treatment of shortness of breath with steroids presents to the ER with chest pressure resolved with nitroglycerin.
CXR
IMPRESSION:
No acute disease of the chest.
TTE
CONCLUSIONS
Normal left ventricular size. Low normal left ventricular systolic function. No
regional wall motion abnormalities are seen. LV ejection fraction is 50-55% by
volumetric assessment. Mild concentric left ventricular hypertrophy. Normal
diastolic function.
Normal right ventricular size and function.
No significant valvular pathology
NSTEMI
-patient given Aspirin 324mg and NTG x 1 by EMS
-Heparin gtt started
-appreciate cardiology consult
-admitted to IVU
-trend Troponin - peaked at 2.6
-s/p TTE - results above
-asa 81mg PO QD
-[employer] statin - increase dose and make in evenings
-new start metoprolol
- s/p cardiac cath 08/27 with MVD; Cardiothoracic surgery consulted
COPD'
-s/p steroids in the ER
-no active wheezing on exam
-duonebs and home inhaler
Essential HTN
-[employer] Amlodipine
NIDDM
-hold [employer] Glimepiride
-ISS low
-diabetic diet
DVT PPx Heparin gtt
FULL CODE
Anticipated Discharge: > 48 hours
Subjective/Interval History
-
Date of Service: August 28, 2024
no chest pain
remains on heparin gtt
some bruising right wrist
Objective Data
-
Labs:
Laboratory Results
08/27/24 08/28/24 08/28/24
23:38 05:19 08:25
WBC Pending
Hgb Pending
Hct Pending
Plt Count Pending
PT Pending
INR Pending
APTT 31.6 Pending
HCO3 27.9
Sodium Pending
Potassium Pending
Chloride Pending
Carbon Dioxide Pending
BUN Pending
Creatinine Pending
Glucose Pending
Calcium Pending
Vital Signs:
Vital Signs
Temp Pulse Resp BP Pulse Ox
98.3 F 74 18 152/61 96
08/28/24 06:53 08/28/24 07:15 08/28/24 07:15 08/28/24 05:40 08/28/24 07:15
I&O
08/27/24 08/28/24 08/29/24
06:59 06:59 06:59
Intake Total 144 / 144 120 / 120
Output Total 300 / 300
Balance -156 / -156 120 / 120
Review of Systems
-
History Source: Patient
All other systems: Reviewed and negative
Physical Exam
-
General: Well Developed and Comfortable
HEENT: Normocephalic
Respiratory: Clear to Auscultation and Decreased Breath Sounds
Cardiac: Regular Rhythm and S1/S2
GI: Soft
Musculoskeletal: Normal Gait & Station
Neuro: Awake, Alert, Oriented and AO x 3
Psych: Calm
Data Reviewed
-
Diagnostic Radiology: Report Reviewed by me
Labs: Labs Reviewed by me
[2024-08-28 08:44] LABS: Hematocrit 34.2 % (37.0-47.0); Hemoglobin 11.3 g/dL (12.0-16.0); Mean Corpuscular Hgb 27.6 pg (27.0-31.0); Mean Corpuscular Volume 83.4 fL (81.0-99.0); Mean Platelet Volume 8.8 fL (7.4-10.4); Platelet Count 293 10^3/uL (130-400); Red Cell Dist. Width 12.9 % (11.5-14.5); White Blood Cell Count 5.3 10^3/uL (4.8-10.8)
[2024-08-28 08:50] LABS: INR 0.98; PT 13.3 Sec (11.4-14.6)
[2024-08-28 08:51] LABS: Glucose - Point of Care 146 mg/dl (70-99)
[2024-08-28 08:52] LABS: APTT 44.1 Sec (23.4-35.0)
[2024-08-28 09:07] LABS: Blood Urea Nitrogen 15 mg/dl (7-17); Calcium 9.1 mg/dl (8.4-10.2); Carbon Dioxide 26 mmol/L (22-30); Chloride 105 mmol/L (98-107); Estimated Creatinine Clearance 64 ml/min; Glucose 150 mg/dl (70-99); Potassium 3.7 mmol/L (3.5-5.1); Sodium 137 mmol/L (135-145); eGFR > 60.00
--- NOTE | 2024-08-28 09:39 | W.PN.UPDATE ---
Update Note
Progress Note Update
Patient sitting up in bed, no complaints, no chest pain. Ongoing evaluation for optimal revascularization continues. PFTs repeated and values are worse compared to previous studies. Option of coronary artery bypass surgery versus PCI/ stenting
continue to be discussed with interventional cardiology.
[2024-08-28] MEDS: ZOLOFT 25 MG PO (10:16)
[2024-08-28] MEDS: TOPROL XL 12.5 MG PO ×2 (10:16→20:03)
[2024-08-28] MEDS: NORVASC 5 MG PO (10:16)
[2024-08-28] MEDS: VITAMIN D3 (cholecalciferol) 25 MCG PO (10:16)
[2024-08-28] MEDS: LOW STRENGTH ASPIRIN 81 MG PO (10:17)
[2024-08-28] MEDS: NOVOLOG FLEXPEN-LOW RESISTANCE SC (10:21)
--- NOTE | 2024-08-28 11:13 | W.PN.CARDCBS ---
Addendum entered and electronically signed by Mansoor Black DO 08/28/24 14:25:
I saw and examined the patient.
The Delivery Crew Member's note was reviewed and I agree with the note.
Comment:
Patient resting comfortably in chair. Notes shortness of breath with activity and exertion
GEN: No distress, awake, Ox3
HEENT: supple, anicteric, mmm
LUNGS: Mildly decreased breath sounds bilaterally but CTA, no wheezes/rales
CV: Reg, S1/S2, 1/6 syst LSB, no murmur
ABD: soft, BS+, NT/ND
EXT: No edema, clubbing or cyanosis
NEURO: Gross non-focal
SKIN: No rash, warm, dry, pink
Telemetry demonstrates sinus rhythm occasional PVC
A/P as below
IV heparin
Ongoing discussion regarding intervention; CABG versus PCI as well as if surgical option, type of surgical intervention
Goal-directed therapy with aspirin, statin, beta-lester
Monitor on telemetry
Replete electrolytes goal potassium greater than 4, magnesium greater than 2
Discussed with nursing, CT surgical team; CT surgical team to touch base with patient again today regarding intervention
Original Note:
Today's Communication / Plan
-
Continue IV heparin
Ongoing discussions regarding CABG versus PCI
Continue aspirin, beta-lester, statin
Impression / Plan
-
PCP: Dr. Olmstead
Card: None
Pulm: Dr. Marcus
Impression:
Presented 08/26/2024 with chest pain, shortness of breath and abnormal troponin
NSTEMI
Abnormal troponin, peaked 2.61
Coronary artery disease
COPD
Emphysema
Former smoker
HTN
Hyperlipidemia
Hyperglycemia
Echo 08/26/2024: EF 50 to 55%. Mild concentric LVH. No significant valvular disease.
Echo 08/06/2022: EF 50 to 55%, no WMA, no significant valvular abnormalities
Cardiac cath 08/27/2024: Multivessel coronary artery disease with official report pending
Plan:
-Presented 08/26/2024 with chest pain, shortness of breath and abnormal troponin.
-Patient ruled in for NSTEMI with peak troponin of 2.61.
-She underwent cardiac catheterization which showed multivessel coronary artery disease. CT surgery has been consulted. Ongoing discussion regarding neck step for revascularization which include CABG versus PCI/stenting
-Patient feeling well without additional chest pain.
-Continue heparin drip
-Continue aspirin, metoprolol new this admission. Eventual consideration of CECELIA/ARB
-Echo this admission shows preserved ejection fraction and no significant valvular disease
-Lipids TC 168, HDL 44, LDL 99, triglycerides 127. Patient was taking pitavastatin 2 mg daily prior to admission. Now on moderate dose atorvastatin
-HgbA1c 6.5%, was on glimepiride as outpatient. Could consider transition to SGLT2 inhibitor
HPI 08/26/2024:
Patient came to ER today with CP that started at 0530 this morning and cardiology is consulted after her troponin was found to be elevated. 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
trazodone BID, but patient instead took in PM only and half the dose that her PCP prescribed and initially this helped her insomnia, but then she felt tired all of the time and the insomnia returned so about a week and a half ago she stopped
trazodone. Patient says that 6 days ago she was walking in the grocery store and had central to left-sided chest pain that improved with resting. She was SOB as well. Patient does not normally have chest pain walking the grocery store and this was
unusual. Patient then able to drive to a friend's home and then home, but has not tried to walk a long distance since that episode. Patient was awake through last night with insomnia and started with central to left-sided chest pain around 0530 this
morning and it lasted for an hour and she called her family who called 911. Paramedics gave patient NTG SL x1 that resolved pain completely and pain had not recurred. Initial ECG in the ER without ST elevations and Troponin was 0.108. Heparin gtt
started. Patient also reporting intermittent dependent edema described as worse when she is on her feet and better after laying down. Also reports weight gain and bloating, but no orthopnea.
Progress Note - Faculty Head
Subjective
Date of Service: August 28, 2024
Patient seen and examined. Patient resting comfortably in bed. Reports she has had no further episodes of chest tightness or shortness of breath.
Objective
Labs:
08/28/24 08:25
08/28/24 08:25
Labs
Hgb 11.3 g/dL (12.0-16.0) L 08/28/24 08:25
Hct 34.2 % (37.0-47.0) L 08/28/24 08:25
Plt Count 293 10^3/uL (130-400) 08/28/24 08:25
PT 13.3 Sec (11.4-14.6) 08/28/24 08:25
INR 0.98 08/28/24 08:25
APTT 44.1 Sec (23.4-35.0) H 08/28/24 08:25
APTT Cancelled 08/28/24 08:25
Sodium 137 mmol/L (135-145) 08/28/24 08:25
Potassium 3.7 mmol/L (3.5-5.1) 08/28/24 08:25
BUN 15 mg/dl (7-17) 08/28/24 08:25
Creatinine 0.7 mg/dL (0.6-1.0) 08/28/24 08:25
Glucose 150 mg/dl (70-99) H 08/28/24 08:25
Troponins
08/26/24 08/26/24 08/26/24
08:22 12:38 18:53
Troponin I 0.108 H* 1.140 H* D 2.610 H* D
08/27/24
08:13
Troponin I 2.340 H*
Vital Signs and I&O:
Vital Signs
Temp Pulse Resp BP Pulse Ox
98.3 F 63 18 143/70 96
08/28/24 06:53 08/28/24 10:58 08/28/24 10:58 08/28/24 06:49 08/28/24 07:15
Vital Signs
Temp Pulse Resp BP Pulse Ox
98.3 F 63 18 143/70 96
08/28/24 06:53 08/28/24 10:58 08/28/24 10:58 08/28/24 06:49 08/28/24 07:15
Intake & Output
08/26/24 08/27/24 08/28/24 08/29/24
06:59 06:59 06:59 06:59
Intake Total 144 / 144 120 / 120
Output Total 300 / 300
Balance -156 / -156 120 / 120
Physical Exam
Physical Exam
GEN: No distress, awake, Ox3
HEENT: supple, anicteric, mmm
LUNGS: Mildly decreased breath sounds bilaterally but CTA, no wheezes/rales
CV: Reg, S1/S2, 1/6 syst LSB, no murmur
ABD: soft, BS+, NT/ND
EXT: No edema, clubbing or cyanosis
NEURO: Gross non-focal
SKIN: No rash, warm, dry, pink
--- NOTE | 2024-08-28 11:28 | CON.PUL ---
Consultation
Consultation Request
Date/Time Consultation Requested: 08/28/2024 - 1019
Date/Time Consultation Performed: 08/28/2024 - 1104
Requesting Provider: YURY Nick
Performing Provider: Dr. Guerrero
Reason for Consultation: Risk stratification for CABG
Medical History
-
Chief Complaint: Chest pain
History of Present Illness:
79-year-old female smoker (quit with >43-njcm-utsf history) who presents with chest pain. Prior to arrival she was*left-sided chest pain that improved with rest. She then experienced chest pain again on the evening prior to arrival that lasted for
an hour and she called 911 and was brought to the ER. Paramedics gave her nitroglycerin x 1 which resolved her pain. Initially in the ER she was afebrile with BP 113/60, pulse rate 90 and saturating 97% on room air. Initial EKG showed
first-degree AV block with no signs of STEMI. Her initial troponin was elevated 0.108 with proBNP 772. Initial CXR showed no acute cardiopulmonary disease. She was started on heparin drip in the ER and also given Solu-Medrol 125 mg and DuoNebs.
She was admitted to the IVU. She subsequently underwent a cardiac catheterization showing multivessel CAD. Cardiothoracic surgery was consulted to evaluate for CABG. Given her history of significant COPD and abnormal PFTs, Pulmonary service now
consulted for pre-operative risk stratification.
When I saw the pt she was in bed in NAD, receiving a neb treatment. Her daughter was at bedside. Pt currently feels well, denying chest pain or SOB at rest. Her last COPD flare was late July/early August, and she was Tx with steroids given
to her by her PCP. She says that this flare led to a sinus infection. She currently denies SAEED, abd pain, N/V/f/c.
Of note patient does follow with us in our office with Dr. Marcus, last visit 08/12/2024. She was given a Medrol Dosepak in case her breathing flares as part of an action plan. She been enrolled in pulmonary rehab which the patient finds helpful plan
was to reenroll her into maintenance program this summer. She also suffers from insomnia and has significant stress in her life. She does have suspected snoring and feeling unrefreshed and unfortunately declined sleep study the patient was
contacted about this. Patient was told to use melatonin and trazodone together. She is on Trelegy mcg and albuterol HFA to be used as needed. Next visit was to be in 6 months with full PFT. Of note, she had full PFTs performed on 08/27/2024
showing moderate COPD with a significant bronchodilator response, with significant improvement in the small lung can, with air trapping, borderline hyperinflation and a marked reduction in gas exchange capacity.
PMHx: Former tobacco smoker, DM type II, hypercholesterolemia, hypertension, anxiety, insomnia, COPD/emphysema, history of COVID-19
PSHx: Appendectomy, cholecystectomy, tubal ligation, abdominal hysterectomy with partial oophorectomy lysis of vaginal adhesions (02/2021)
Past Medical History
Past Medical History: Other (Above as per HPI)
Past Surgical History: Other (Above as per HPI)
Social History
Tobacco: Former Smoker (Quit 2009, smoked 2 packs/day for 45 years)
Alcohol: None
Drug: None
Family History
Family History: CAD (Mother), Cancer (Father: Lung cancer), Diabetes (Mother), Hypertension (Mother) and Other (Mother: COPD)
Allergies / Home Medications
Allergies
Allergy/AdvReac Type Severity Reaction Status Date / Time
morphine Allergy Mild Nausea / Unverified 08/26/24 20:21
Vomiting
azithromycin [From Zithromax] Allergy Rash Verified 08/04/22 11:25
oxycodone Allergy Vomiting Verified 08/26/24 18:39
Penicillins Allergy Hives-YEARS Verified 08/26/24 18:39
AGO
Home Medications
�Medication �Instructions �Recorded �Confirmed �Last Taken �Type
amlodipine 5 mg tablet 5 mg PO DAILY 30 days #30 tabs 08/07/22 08/26/24 08/25/24 Rx
albuterol sulfate 2.5 mg/3 mL 2.5 mg inhalation R Q4 08/26/24 08/26/24 08/25/24 History
(0.083 %) solution for nebulization
albuterol sulfate 90 mcg/actuation 1 puff inhalation R Q4HPRN PRN 08/26/24 08/26/24 Unknown History
aerosol inhaler sob/wheezing
cholecalciferol (vitamin D3) 25 25 mcg PO DAILY 08/26/24 08/26/24 08/25/24 History
mcg (1,000 unit) tablet (Vitamin
D3)
cholestyramine (with sugar) 4 gram 4 g PO DAILY 08/26/24 08/26/24 08/25/24 History
powder for susp in a packet
fluticasone fur. 100 mcg-umeclid 1 inh inhalation DAILY 08/26/24 08/26/24 08/25/24 History
62.5 mcg-vilant 25 mcg
inhalat.powder (Trelegy Ellipta)
glimepiride 2 mg tablet 2 mg PO DAILY 08/26/24 08/26/24 08/25/24 History
pitavastatin calcium 2 mg tablet 2 mg PO DAILY 08/26/24 08/26/24 08/25/24 History
sertraline 25 mg tablet 25 mg PO DAILY 08/26/24 08/26/24 08/25/24 History
Review of Systems
-
History Source: Patient
All other systems: Negative unless noted
Vitals / Labs / Diagnostic Testing
Vital Signs
Temp Pulse Resp BP Pulse Ox
98 F 63 18 143/70 95
08/28/24 11:30 08/28/24 10:58 08/28/24 11:30 08/28/24 06:49 08/28/24 11:30
Lab Data
08/28/24 08:25
08/28/24 08:25
Laboratory Results
08/27/24 08/28/24 08/28/24
23:38 05:19 08:25
PT 13.3
INR 0.98
APTT 31.6 44.1 H
pH 7.43
pCO2 42 H
pO2 80 L
HCO3 27.9
O2 Delivery Level Room air
08/28/24
08:25
PT
INR
APTT Cancelled
pH
pCO2
pO2
HCO3
O2 Delivery Level
Diagnostic Testing:
Physical Exam
-
HEENT: Normocephalic and Anicteric
Cardiovascular: S1/S2 and Peripheral Edema (n)
Respiratory: Clear, Wheeze (n), Rales (n), Rhonchi (n) and Non-Labored Respirations
GI: Soft, Non Distended, Non Tender and Normal Bowel Sounds
Neurology: AO x 3 and Tremors (n)
Skin: Warm and Dry
General: Respiratory Distress (n), Comfortable, Fever (n) and Chills (n)
Assessment
-
Assessment: 79-year-old female smoker (quit with >44-gadm-oaov history) who presents with chest pain. Prior to arrival she was*left-sided chest pain that improved with rest. She then experienced chest pain again on the evening prior to arrival
that lasted for an hour and she called 911 and was brought to the ER. Paramedics gave her nitroglycerin x 1 which resolved her pain. Initially in the ER she was afebrile with BP 113/60, pulse rate 90 and saturating 97% on room air. Initial EKG
showed first-degree AV block with no signs of STEMI. Her initial troponin was elevated 0.108 with proBNP 772. Initial CXR showed no acute cardiopulmonary disease. She was started on heparin drip in the ER and also given Solu-Medrol 125 mg and
DuoNebs. She was admitted to the IVU. She subsequently underwent a cardiac catheterization showing multivessel CAD. Cardiothoracic surgery was consulted to evaluate for CABG. Given her history of significant COPD, pulmonary service now consulted
for preoperative risk stratification.
Chronic conditions ELECTRICAL TESTER: Former tobacco smoker, DM type II, hypercholesterolemia, hypertension, anxiety, insomnia, COPD/emphysema, history of COVID-19
Impression:
#NSTEMI with multivessel coronary artery calcification seen on CT chest from 08/27/2024 involving the LAD, LCx and RCA
#History of class II, Group E COPD with air trapping and borderline hyperinflation on Trelegy as an outpatient
#Anemia (mild)
#Elevated troponin likely due to NSTEMI (peaked at 2.61 on 08/26/2024)
#DM type II complicated by hyperglycemia
#Former tobacco smoker with 94-tpxk-unbs Hx (quit 2009)
#HTN
#HLD
#Insomnia
#Personal Hx of COVID-19
Plan:
- Pt does carry a Hx of COPD with significant air trapping and borderline hyperinflation seen on PFT from 08/27/2024, and her CT chest from 08/27/2024 shows significant centrilobular emphysema with biapical fibrosis
- Continue Symbicort and Spiriva while hospitalized here, and I will change her Duonebs to nebulized albuterol TID --> resume home inhalers upon discharge
- Not currently experiencing a flare of her COPD, so no need for systemic steroids at this time
- Given the very high risk of hypoxia with single lung ventilation as her DLco is 21% predicted, would argue against CABG and instead would favor PCI
- It may be prudent to give her a dose of Solu-Medrol before she gets anesthesia as a preventative measure - will ultimately defer this to anesthesia service
- Maintain SpO2 88-95% with supplemental O2 as needed (she is currently on room air and breathing comfortably)
- Continue heparin gtt as per cardiology for MV-CAD
- Defer decision for surgical revascularization to cardiothoracic surgery, but as stated above, this is a very high risk, not to mention she will require mechanical ventilation that will be difficult to liberate her from
- Although she is high risk for a high risk procedure whether its CABG or PCI, she is medically optimized from a pulmonary perspective
- Could consider starting Zithromax but she has an allergy to this; can consider starting Ohtuvayre, which can be discussed as an outpatient setting
- prn nebulized bronchodilators - not currently bronchospastic
- Incentive spirometer encouraged q1hr while awake
- Replete electrolytes with K>4, Mg>2
- Trend H/H and transfuse if needed to keep Hb>7g/dL; keep plt>20k, unless there is concern for bleeding then keep plt>50k
- Maintain euglycemia with goal BG >100 and <180
- DVT ppx: on heparin gtt
Recommend outpatient follow up with Dr. Hurtado.
No additional recommendations at this time. If additional discussion is warranted before patient goes for either surgical bypass or PCI then please contact the pulmonary physician on-call. Pulmonary service will now sign off. Thank you for
allowing us to be involved in the care of this patient. Please reconsult if there are any additional questions/concerns, or if patient's respiratory status deteriorates.
Data:
CT Chest without contrast 08/27/2024:
There is no evidence for thoracic aortic aneurysm.
Mild to moderate calcification of the thoracic aorta as described.
Mild calcification of the aortic valve. Moderate calcification in the region of the sinotubular junction.
Coronary artery calcifications are present.
Moderate to severe changes of emphysema. Mild bilateral apical pleuroparenchymal scarring, stable.
Total time spent today was 57 minutes for this encounter. Time includes reviewing laboratory test/imaging results, reviewing pertinent medical records, obtaining and reviewing medical history, performing an appropriate exam, ordering medications,
tests and procedures. Time also includes documentation of this encounter, coordinating patient care and communicating with other healthcare professionals. Total time does not include separately billed tests performed on this date of service.
[2024-08-28 12:23] LABS: Glucose - Point of Care 166 mg/dl (70-99)
[2024-08-28] MEDS: NOVOLOG FLEXPEN-LOW RESISTANCE 1 UNITS SC (12:24)
[2024-08-28] MEDS: DUONEB INH (14:59)
[2024-08-28] MEDS: HEPARIN 25000 UNITS/250 ML IV (15:43)
--- NOTE | 2024-08-28 15:58 | CM ---
no change in dc plans , home when medically stable.
[2024-08-28 16:11] LABS: APTT 54.1 Sec (23.4-35.0)
[2024-08-28 17:06] LABS: Glucose - Point of Care 215 mg/dl (70-99)
[2024-08-28] MEDS: LIPITOR 40 MG PO (17:16)
[2024-08-28] MEDS: NOVOLOG FLEXPEN-LOW RESISTANCE 2 UNITS SC (17:22)
--- NOTE | 2024-08-28 18:00 | PTCARENOTE ---
Pt received this am with no c/o of any chest pain. Mild sob with exertion. [place] [facility] [place]. Gait steady. Heparin infusing as ordered.
[2024-08-28] MEDS: VENTOLIN NEBULES 2.5 MG INH (19:11)
--- NOTE | 2024-08-28 20:47 | ITS.CL.CATH ---
Buffing Wheel Operator - Catheterization
Cardiac Catheterization
Procedure Report:
LEFT HEART CATHETERIZATION
Date of Procedure: August 27, 2024
Referring: Yesi Smith
PROCEDURES:
1. Left heart catheterization, coronary angiogram.
2. Ultrasound-guided access.
INDICATION: NSTEMI
ACCESS: Right radial artery, 6 Icelandic sheath, under ultrasound guidance
Ultrasound was utilized for vascular access. The radial artery was visualized under ultrasound, and the vessel was patent and pulsatile. An image was stored permanently in the patient's medical record. Under direct ultrasound guidance, a 6 Icelandic
sheath was inserted into the artery using a micropuncture kit through a modified Seldinger technique.
HEMODYNAMICS : (mmHg)
AO (s/d) : 132/50
LV (s/d) : 135/80
LVEDP : 14
CORONARY FINDINGS
DOMINANCE: Left
LEFT MAIN: The left main artery is a large-caliber, short vessel which gives rise to the left anterior descending artery, ramus intermedius branch and the left anterior descending artery. There is minimal luminal irregularities.
LEFT ANTERIOR DESCENDING: The left anterior descending artery is a large-caliber vessel which gives rise to multiple small caliber diagonal branches as it courses to the anterior interventricular groove and wraps around the apex. Ostial LAD has
eccentric 70 to 75% stenosis. Mid LAD has calcified hazy tubular 70 to 75% stenosis which is likely culprit of presenting NSTEMI.
RAMUS INTERMEDIUS: The ramus intermedius branch is a medium caliber vessel. There is eccentric ostial 50% stenosis. Midportion of the vessel has 50 to 60% tubular stenosis.
LEFT CIRCUMFLEX: The left circumflex artery is a large-caliber, dominant vessel which gives rise to 2 major obtuse marginal branches, the left posterolateral branch and the left posterior descending artery. There is mild diffuse atherosclerotic
plaque.
RIGHT CORONARY ARTERY: The right coronary artery is a small caliber, nondominant vessel with minimal luminal irregularities.
SEDATION: 33 minutes of procedural sedation was utilized. An independent medical policy specialist was present to assist with and help manage the patient's level of consciousness and physiologic status.
RADIATION SUMMARY: Fluoro Time (min): 2.2, Dose (mGy): 229.44, DAP (Gy.cm2) : 10.87
Closure Device: Vascular band over right radial artery, 10 cc of air.
CONCLUSIONS
1. Left dominant circulation.
2. Ostial LAD has eccentric 70 to 75% stenosis. Mid LAD has calcified hazy tubular 70 to 75% stenosis which is likely culprit of presenting NSTEMI.
3. The ramus intermedius branch is a medium caliber vessel. There is eccentric ostial 50% stenosis. Midportion of the vessel has 50 to 60% tubular stenosis.
4. The left circumflex artery is a large-caliber, dominant vessel which gives rise to 2 major obtuse marginal branches, the left posterolateral branch and the left posterior descending artery. There is mild diffuse atherosclerotic plaque.
5. Normal LVEDP
RECOMMENDATIONS
1. Given ostial LAD stenosis and a left dominant system, plan for a heart team discussion about candidacy/risks with possible robotic ZENG to LAD versus median sternotomy with bypasses to LAD and ramus intermedius branch versus PCI.
2. Aggressive management of cardiovascular risk factors.
3. Wean radioman per protocol.
4. Full echocardiogram to assess biventricular function and rule out any significant valvular abnormalities.
5. Eventual referral for outpatient cardiac rehab.
Candace Juarez MD, FACC, [facility]
[2024-08-28 21:42] LABS: Glucose - Point of Care 158 mg/dl (70-99)
[2024-08-28] MEDS: SENOKOT-S 1 TABLET PO (21:46)
--- NOTE | 2024-08-28 22:53 | PTCARENOTE ---
Pt rec'd at change of shift awake, alert with family at bedside. Pt with diminished breath sounds throughout , rare harsh cough noted. Dyspneic with minimal activity. Right radial site with DDI. Pt reports no bm for 2 days. Made several attempts to
move bowels without success but only passing flatus. House REIMBURSEMENT MANAGER contacted for Pericolace; dose given. heparin gtt remains at 1500 units/hr next ptt due at 2330.
[2024-08-29 00:15] LABS: APTT 114.9 Sec (23.4-35.0)
[2024-08-29 06:03] VITALS: BP 150/85
[2024-08-29 06:10] VITALS: BMI 28.7
[2024-08-29 06:45] LABS: Hematocrit 34.8 % (37.0-47.0); Hemoglobin 11.5 g/dL (12.0-16.0); Mean Corpuscular Hgb 28.3 pg (27.0-31.0); Mean Corpuscular Volume 85.7 fL (81.0-99.0); Mean Platelet Volume 8.7 fL (7.4-10.4); Platelet Count 283 10^3/uL (130-400); Red Blood Cell Count 4.06 10^6/uL (4.20-5.40); Red Cell Dist. Width 12.8 % (11.5-14.5); White Blood Cell Count 4.9 10^3/uL (4.8-10.8)
[2024-08-29 06:57] LABS: APTT 144.6 Sec (23.4-35.0)
[2024-08-29 07:17] LABS: Blood Urea Nitrogen 11 mg/dl (7-17); Calcium 8.8 mg/dl (8.4-10.2); Carbon Dioxide 25 mmol/L (22-30); Chloride 104 mmol/L (98-107); Estimated Creatinine Clearance 74 ml/min; Glucose 134 mg/dl (70-99); Potassium 3.4 mmol/L (3.5-5.1); Sodium 137 mmol/L (135-145); eGFR > 60.00
[2024-08-29] MEDS: SPIRIVA RESPIMAT 2.5 MCG 2 PUFF INH (07:35)
[2024-08-29] MEDS: VENTOLIN NEBULES 2.5 MG INH ×3 (07:36→19:12)
[2024-08-29] MEDS: SYMBICORT 80/4.5 MCG INHALER 2 PUFF INH ×2 (07:36→19:12)
--- NOTE | 2024-08-29 07:39 | W.PN.HOSP.TC ---
Today's Communication/Plan
-
F/U further specialist recommendations
Assessment / Plan
Assessment / Plan
Ms. Mena Post is a 79 yo woman with hx COPD, HLD, NIDDM, recent outpatient treatment of shortness of breath with steroids presents to the ER with chest pressure resolved with nitroglycerin.
CXR
IMPRESSION:
No acute disease of the chest.
TTE
CONCLUSIONS
Normal left ventricular size. Low normal left ventricular systolic function. No
regional wall motion abnormalities are seen. LV ejection fraction is 50-55% by
volumetric assessment. Mild concentric left ventricular hypertrophy. Normal
diastolic function.
Normal right ventricular size and function.
No significant valvular pathology
NSTEMI
-patient given Aspirin 324mg and NTG x 1 by EMS
-Heparin gtt started
-appreciate cardiology consult
-admitted to IVU
-trend Troponin - peaked at 2.6
-s/p TTE - results above
-asa 81mg PO QD
-BROACH GRINDER statin - increase dose and make in evenings
-new start metoprolol
- s/p cardiac cath 08/27 with MVD; Cardiothoracic surgery consulted; appreciate pulm eval
COPD
-s/p steroids in the ER
-no active wheezing on exam
-duonebs and home inhaler
Essential HTN
-BROACH GRINDER Amlodipine
NIDDM
-hold BROACH GRINDER Glimepiride
-ISS low
-diabetic diet
DVT PPx Heparin gtt
FULL CODE
Anticipated Discharge: > 48 hours
Subjective/Interval History
-
Date of Service: August 29, 2024
no chest pain
breathing is stable
Objective Data
-
Labs:
Laboratory Results
08/28/24 08/29/24
23:46 06:38
WBC 4.9
Hgb 11.5 L
Hct 34.8 L
Plt Count 283
APTT 114.9 H 144.6 H
Sodium 137
Potassium 3.4 L
Chloride 104
Carbon Dioxide 25
BUN 11
Creatinine 0.6
Glucose 134 H
Calcium 8.8
Vital Signs:
Vital Signs
Temp Pulse Resp BP Pulse Ox
97.9 F 85 24 150/85 96
08/29/24 06:03 08/29/24 06:03 08/29/24 06:03 08/29/24 06:03 08/29/24 06:03
I&O
08/28/24 08/29/24 08/30/24
06:59 06:59 06:59
Intake Total 120 / 120 240 / 240
Balance 120 / 120 240 / 240
Review of Systems
-
History Source: Patient
All other systems: Reviewed and negative
Physical Exam
-
General: Well Developed and Comfortable
HEENT: Normocephalic
Respiratory: Clear to Auscultation and Decreased Breath Sounds
Cardiac: Regular Rhythm and S1/S2
GI: Soft
Musculoskeletal: Normal Gait & Station
Neuro: Awake, Alert, Oriented and AO x 3
Psych: Calm
Data Reviewed
-
Diagnostic Radiology: Report Reviewed by me
Labs: Labs Reviewed by me
[2024-08-29 08:51] VITALS: BP 124/53
[2024-08-29 08:58] LABS: Glucose - Point of Care 184 mg/dl (70-99)
[2024-08-29] MEDS: KCL 20 MEQ PO (09:14)
[2024-08-29] MEDS: NORVASC 5 MG PO (09:15)
[2024-08-29] MEDS: VITAMIN D3 (cholecalciferol) 25 MCG PO (09:15)
[2024-08-29] MEDS: LOW STRENGTH ASPIRIN 81 MG PO (09:15)
[2024-08-29] MEDS: TOPROL XL 12.5 MG PO ×2 (09:15→20:15)
[2024-08-29] MEDS: NOVOLOG FLEXPEN-LOW RESISTANCE 1 UNITS SC ×2 (09:16→17:50)
[2024-08-29] MEDS: ZOLOFT 25 MG PO (09:16)
[2024-08-29] MEDS: HEPARIN 25000 UNITS/250 ML IV (09:17)
--- NOTE | 2024-08-29 09:39 | W.PN.UPDATE ---
Update Note
Progress Note Update
CARDIAC ATTENDING:
Pt. seen and examined. Case reviewed.
Given patient poor lung function, I believe traditional CABG would be very high risk.
Doubt that pt's lung function would accommodate isolated lung ventilation required for robotic OPCAB; will d/w Dr. Marcus
Given age and comorbidities, PCI/stenting is likely ideal treatment strategy if possible; will d/w Dr. Juarez
--- NOTE | 2024-08-29 12:26 | W.PN.CARDCBS ---
Addendum entered and electronically signed by Mansoor Black DO 08/29/24 13:44:
I saw and examined the patient.
The Java Groovy Developer's note was reviewed and I agree with the note.
Comment:
Patient resting comfortably in chair with her son at bedside. Patient denies any chest pain, lightheadedness, dizziness, weakness. Notes mild shortness of breath especially on exertion but none at rest. Remains on heparin drip.
GEN: No distress, awake, Ox3
HEENT: supple, anicteric, mmm
LUNGS: Mildly decreased breath sounds bilaterally but CTA, no wheezes/rales
CV: Reg, S1/S2, 1/6 syst LSB, no murmur
ABD: soft, BS+, NT/ND
EXT: No edema, clubbing or cyanosis; right radial access site clean dry intact, ecchymosis of right hand distal to access site noted and unchanged from yesterday
NEURO: Gross non-focal
SKIN: No rash, warm, dry, pink
Telemetry demonstrates sinus rhythm occasional PVC
A/P as below
Ongoing discussion regarding intervention for CAD --CABG versus PCI. Awaiting input by CT surgery on Saturday regarding possibility of robotic assisted intervention.
Remains on IV heparin, monitor on telemetry
Continue aspirin, beta-lester, amlodipine; if no planned surgical intervention, tentative PCI for 09/01/2024; patient need additional antiplatelet agent on 08/31/[address] surgery input
Original Note:
Today's Communication / Plan
-
Ongoing discussion regarding CABG versus PCI. Final decision will be made on Saturday
Continue IV heparin
Continue aspirin, beta-lester, amlodipine and aspirin
Replete potassium
Impression / Plan
-
PCP: Dr. Olmstead
Card: None
Pulm: Dr. Marcus
Impression:
Presented 08/26/2024 with chest pain, shortness of breath and abnormal troponin
NSTEMI
Abnormal troponin, peaked 2.61
Coronary artery disease
COPD
Emphysema
Former smoker
HTN
Hyperlipidemia
Hyperglycemia
Echo 08/26/2024: EF 50 to 55%. Mild concentric LVH. No significant valvular disease.
Echo 08/06/2022: EF 50 to 55%, no WMA, no significant valvular abnormalities
Cardiac cath 08/27/2024: Left main: LI. LAD ostial 70 to 75% stenosis, mid hazy 70 to 75% stenosis. Ramus: Ostial 50%, mid 50 to 60%. Left circumflex: LI. RCA: LI
Plan:
-Presented 08/26/2024 with chest pain, shortness of breath and abnormal troponin.
-Patient ruled in for NSTEMI with peak troponin of 2.61.
-She underwent cardiac catheterization which showed multivessel coronary artery disease. Most likely mid LAD stenosis culprit of presenting NSTEMI.
-Patient feeling well without additional chest pain.
-Continue heparin drip with ongoing discussions of robotic assisted ZENG to LAD versus traditional CABG versus PCI. Final decision will be made on Saturday. CT surgery leaning towards PCI approach
-If no surgical option and plan would be to proceed with PCI patient would need Plavix load.
-Continue aspirin, metoprolol new this admission. Eventual consideration of CECELIA/ARB
-Potassium 3.4. Will replete
-Echo this admission shows preserved ejection fraction and no significant valvular disease
-Lipids TC 168, HDL 44, LDL 99, triglycerides 127. Patient was taking pitavastatin 2 mg daily prior to admission. Now on moderate dose atorvastatin
-HgbA1c 6.5%, was on glimepiride as outpatient. Could consider transition to SGLT2 inhibitor
HPI 08/26/2024:
Patient came to ER today with CP that started at 0530 this morning and cardiology is consulted after her troponin was found to be elevated. 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
trazodone BID, but patient instead took in PM only and half the dose that her PCP prescribed and initially this helped her insomnia, but then she felt tired all of the time and the insomnia returned so about a week and a half ago she stopped
trazodone. Patient says that 6 days ago she was walking in the grocery store and had central to left-sided chest pain that improved with resting. She was SOB as well. Patient does not normally have chest pain walking the grocery store and this was
unusual. Patient then able to drive to a friend's home and then home, but has not tried to walk a long distance since that episode. Patient was awake through last night with insomnia and started with central to left-sided chest pain around 0530 this
morning and it lasted for an hour and she called her family who called 911. Paramedics gave patient NTG SL x1 that resolved pain completely and pain had not recurred. Initial ECG in the ER without ST elevations and Troponin was 0.108. Heparin gtt
started. Patient also reporting intermittent dependent edema described as worse when she is on her feet and better after laying down. Also reports weight gain and bloating, but no orthopnea.
Progress Note - Inspector Missile
Subjective
Date of Service: August 29, 2024
Patient seen and examined. Patient sitting in bed comfortably. She notes that dyspnea with activity but denies chest pain or pressure.
Objective
Labs:
08/29/24 06:38
08/29/24 06:38
Labs
Hgb 11.5 g/dL (12.0-16.0) L 08/29/24 06:38
Hct 34.8 % (37.0-47.0) L 08/29/24 06:38
Plt Count 283 10^3/uL (130-400) 08/29/24 06:38
PT 13.3 Sec (11.4-14.6) 08/28/24 08:25
INR 0.98 08/28/24 08:25
APTT 144.6 Sec (23.4-35.0) H 08/29/24 06:38
Sodium 137 mmol/L (135-145) 08/29/24 06:38
Potassium 3.4 mmol/L (3.5-5.1) L 08/29/24 06:38
BUN 11 mg/dl (7-17) 08/29/24 06:38
Creatinine 0.6 mg/dL (0.6-1.0) 08/29/24 06:38
Glucose 134 mg/dl (70-99) H 08/29/24 06:38
Troponins
08/26/24 08/26/24 08/27/24
12:38 18:53 08:13
Troponin I 1.140 H* D 2.610 H* D 2.340 H*
Vital Signs and I&O:
Vital Signs
Temp Pulse Resp BP Pulse Ox
97.5 F 75 18 124/53 95
08/29/24 08:48 08/29/24 09:00 08/29/24 08:48 08/29/24 08:51 08/29/24 09:23
Vital Signs
Temp Pulse Resp BP Pulse Ox
97.5 F 75 18 124/53 95
08/29/24 08:48 08/29/24 09:00 08/29/24 08:48 08/29/24 08:51 08/29/24 09:23
Intake & Output
08/27/24 08/28/24 08/29/24 08/30/24
06:59 06:59 06:59 06:59
Intake Total 144 / 144 120 / 120 240 / 240
Output Total 300 / 300
Balance -156 / -156 120 / 120 240 / 240
Physical Exam
Physical Exam
GEN: No distress, awake, Ox3
HEENT: supple, anicteric, mmm
LUNGS: Mildly decreased breath sounds bilaterally but CTA, no wheezes/rales
CV: Reg, S1/S2, 1/6 syst LSB, no murmur
ABD: soft, BS+, NT/ND
EXT: No edema, clubbing or cyanosis; right radial access site clean dry intact, ecchymosis of right hand distal to access site noted and unchanged from yesterday
NEURO: Gross non-focal
SKIN: No rash, warm, dry, pink
[2024-08-29 12:31] VITALS: BP 131/72
[2024-08-29 12:49] LABS: Glucose - Point of Care 132 mg/dl (70-99)
[2024-08-29] MEDS: NOVOLOG FLEXPEN-LOW RESISTANCE SC (13:03)
[2024-08-29 16:05] LABS: APTT 71.4 Sec (23.4-35.0)
[2024-08-29 16:07] VITALS: BP 120/63
[2024-08-29 17:50] LABS: Glucose - Point of Care 170 mg/dl (70-99)
[2024-08-29] MEDS: LIPITOR 40 MG PO (17:51)
--- NOTE | 2024-08-29 18:16 | PTCARENOTE ---
Pt denies any discomfort, OOB in chair visiting for most of the day. Heparin infusion still not at a therapeutic level. Telemetry shows sinus rhythm with first degree AV block with occasional PVC's.
[2024-08-29 18:32] VITALS: BP 115/41
[2024-08-29 22:28] VITALS: BP 124/48
[2024-08-29 22:31] LABS: Glucose - Point of Care 134 mg/dl (70-99)
[2024-08-30] VITALS (8 sets, daily range): BP systolic 115–139; BP diastolic 49–58; BMI 27.9
[2024-08-30] MEDS: HEPARIN 25000 UNITS/250 ML IV (05:16)
[2024-08-30 05:50] LABS: APTT 90.1 Sec (23.4-35.0)
[2024-08-30 05:56] LABS: Hematocrit 35.5 % (37.0-47.0); Hemoglobin 11.7 g/dL (12.0-16.0); Mean Corpuscular Hgb 28.3 pg (27.0-31.0); Mean Platelet Volume 9.1 fL (7.4-10.4); Platelet Count 244 10^3/uL (130-400); Red Blood Cell Count 4.13 10^6/uL (4.20-5.40); Red Cell Dist. Width 12.9 % (11.5-14.5); White Blood Cell Count 4.4 10^3/uL (4.8-10.8)
--- NOTE | 2024-08-30 07:51 | W.PN.HOSP.TC ---
Today's Communication/Plan
-
see plan
Assessment / Plan
Assessment / Plan
Ms. Mena Post is a 79 yo woman with hx COPD, HLD, NIDDM, recent outpatient treatment of shortness of breath with steroids presents to the ER with chest pressure resolved with nitroglycerin, found to have NSTEMI. She is s/p cardiac cath on 08/27
showing multivessel disease; on-going discussions regarding CABG versus PCI.
CXR
IMPRESSION:
No acute disease of the chest.
TTE
CONCLUSIONS
Normal left ventricular size. Low normal left ventricular systolic function. No
regional wall motion abnormalities are seen. LV ejection fraction is 50-55% by
volumetric assessment. Mild concentric left ventricular hypertrophy. Normal
diastolic function.
Normal right ventricular size and function.
No significant valvular pathology
Cardiac Cath 08/28/24
CONCLUSIONS
1. Left dominant circulation.
2. Ostial LAD has eccentric 70 to 75% stenosis. Mid LAD has calcified hazy tubular 70 to 75% stenosis which is likely culprit of presenting NSTEMI.
3. The ramus intermedius branch is a medium caliber vessel. There is eccentric ostial 50% stenosis. Midportion of the vessel has 50 to 60% tubular stenosis.
4. The left circumflex artery is a large-caliber, dominant vessel which gives rise to 2 major obtuse marginal branches, the left posterolateral branch and the left posterior descending artery. There is mild diffuse atherosclerotic plaque.
5. Normal LVEDP
NSTEMI
-admitted to IVU
-Troponin peaked at 2.6
-s/p TTE - results above, no regional WMA; LVEF 50-55%
-s/p cardiac cath 08/27 with MVD; Cardiothoracic surgery consulted; appreciate pullexus matthews - on-going discussions on CABG versus PCI
-asa 81mg PO QD
-continue IV Heparin gtt
-STAGE PRODUCER statin - increase dose and make in evenings
-new start metoprolol
-appreciate Cardiology, CTS and Pulm consults (to help with risk stratification with surgery)
COPD
-s/p steroids in the ER
-no active wheezing on exam
-duonebs and home inhaler
Essential HTN
-STAGE PRODUCER Amlodipine
NIDDM
-hold STAGE PRODUCER Glimepiride
-ISS low
-diabetic diet
DVT PPx Heparin gtt
FULL CODE
Anticipated Discharge: > 48 hours
Subjective/Interval History
-
Date of Service: August 30, 2024
no new complaints
no chest pain
Objective Data
-
Labs:
Laboratory Results
08/29/24 08/30/24
22:34 05:24
WBC 4.4 L
Hgb 11.7 L
Hct 35.5 L
Plt Count 244
APTT 87.0 H 90.1 H
Vital Signs:
Vital Signs
Temp Pulse Resp BP Pulse Ox
98.2 F 80 20 124/48 94
08/30/24 07:38 08/29/24 23:30 08/30/24 07:38 08/29/24 22:28 08/30/24 07:38
I&O
08/29/24 08/30/24 08/31/24
06:59 06:59 06:59
Intake Total 240 / 240 400 / 400
Balance 240 / 240 400 / 400
Review of Systems
-
History Source: Patient
All other systems: Reviewed and negative
Physical Exam
-
General: Well Developed and Comfortable
HEENT: Normocephalic
Respiratory: Clear to Auscultation and Decreased Breath Sounds
Cardiac: Regular Rhythm and S1/S2
GI: Soft
Musculoskeletal: Normal Gait & Station
Neuro: Awake, Alert, Oriented and AO x 3
Psych: Calm
Data Reviewed
-
Diagnostic Radiology: Report Reviewed by me
Labs: Labs Reviewed by me
[2024-08-30] MEDS: VENTOLIN NEBULES 2.5 MG INH ×3 (07:57→19:11)
[2024-08-30] MEDS: SPIRIVA RESPIMAT 2.5 MCG 2 PUFF INH (07:57)
[2024-08-30] MEDS: SYMBICORT 80/4.5 MCG INHALER 2 PUFF INH ×2 (07:57→19:11)
[2024-08-30 08:28] LABS: Glucose - Point of Care 157 mg/dl (70-99)
--- NOTE | 2024-08-30 10:18 | W.PN.CARDCBS ---
Today's Communication / Plan
-
Continue heparin drip
Awaiting input by CT surgery regarding surgical option versus PCI
Impression / Plan
-
PCP: Dr. Olmstead
Card: None
Pulm: Dr. Marcus
Impression:
Presented 08/26/2024 with chest pain, shortness of breath and abnormal troponin
NSTEMI
Abnormal troponin, peaked 2.61
Coronary artery disease
COPD
Emphysema
Former smoker
HTN
Hyperlipidemia
Hyperglycemia
Echo 08/26/2024: EF 50 to 55%. Mild concentric LVH. No significant valvular disease.
Echo 08/06/2022: EF 50 to 55%, no WMA, no significant valvular abnormalities
Cardiac cath 08/27/2024: Left main: LI. LAD ostial 70 to 75% stenosis, mid hazy 70 to 75% stenosis. Ramus: Ostial 50%, mid 50 to 60%. Left circumflex: LI. RCA: LI
Plan:
-Presented 08/26/2024 with chest pain, shortness of breath and abnormal troponin.
-Patient ruled in for NSTEMI with peak troponin of 2.61.
-She underwent cardiac catheterization which showed multivessel coronary artery disease. Most likely mid LAD stenosis culprit of presenting NSTEMI.
-Patient feeling well without additional chest pain.
-Continue heparin drip with ongoing discussions of robotic assisted ZENG to LAD versus traditional CABG versus PCI. Final decision will be made on Saturday. CT surgery leaning towards PCI approach
-If no surgical option and plan would be to proceed with PCI, plan to discuss with interventional cardiology on 08/31/2024 regarding DAPT load for tentative intervention 09/01/2024.
-Continue aspirin, metoprolol new this admission. Eventual consideration of CECELIA/ARB
-Echo this admission shows preserved ejection fraction and no significant valvular disease
-Lipids TC 168, HDL 44, LDL 99, triglycerides 127. Patient was taking pitavastatin 2 mg daily prior to admission. Now on moderate dose atorvastatin
-HgbA1c 6.5%, was on glimepiride as outpatient. Could consider transition to SGLT2 inhibitor
HPI 08/26/2024:
Patient came to ER today with CP that started at 0530 this morning and cardiology is consulted after her troponin was found to be elevated. 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
trazodone BID, but patient instead took in PM only and half the dose that her PCP prescribed and initially this helped her insomnia, but then she felt tired all of the time and the insomnia returned so about a week and a half ago she stopped
trazodone. Patient says that 6 days ago she was walking in the grocery store and had central to left-sided chest pain that improved with resting. She was SOB as well. Patient does not normally have chest pain walking the grocery store and this was
unusual. Patient then able to drive to a friend's home and then home, but has not tried to walk a long distance since that episode. Patient was awake through last night with insomnia and started with central to left-sided chest pain around 0530 this
morning and it lasted for an hour and she called her family who called 911. Paramedics gave patient NTG SL x1 that resolved pain completely and pain had not recurred. Initial ECG in the ER without ST elevations and Troponin was 0.108. Heparin gtt
started. Patient also reporting intermittent dependent edema described as worse when she is on her feet and better after laying down. Also reports weight gain and bloating, but no orthopnea.
Progress Note - Portfolio Management Marketing
Subjective
Date of Service: August 30, 2024
Patient seen and examined this morning. No acute events overnight. Patient resting comfortably in bed. Patient denies chest pain, shortness of breath, palpitations, weakness. She notes mild shortness of breath with activity and exertion but none
at rest. Telemetry demonstrates sinus rhythm.
Objective
Labs:
08/30/24 05:24
08/29/24 06:38
Labs
Hgb 11.7 g/dL (12.0-16.0) L 08/30/24 05:24
Hct 35.5 % (37.0-47.0) L 08/30/24 05:24
Plt Count 244 10^3/uL (130-400) 08/30/24 05:24
PT 13.3 Sec (11.4-14.6) 08/28/24 08:25
INR 0.98 08/28/24 08:25
APTT 90.1 Sec (23.4-35.0) H 08/30/24 05:24
Sodium 137 mmol/L (135-145) 08/29/24 06:38
Potassium 3.4 mmol/L (3.5-5.1) L 08/29/24 06:38
BUN 11 mg/dl (7-17) 08/29/24 06:38
Creatinine 0.6 mg/dL (0.6-1.0) 08/29/24 06:38
Glucose 134 mg/dl (70-99) H 08/29/24 06:38
Vital Signs and I&O:
Vital Signs
Temp Pulse Resp BP Pulse Ox
98.2 F 63 16 124/48 96
08/30/24 07:38 08/30/24 08:02 08/30/24 08:02 08/29/24 22:28 08/30/24 09:00
Vital Signs
Temp Pulse Resp BP Pulse Ox
98.2 F 63 16 124/48 96
08/30/24 07:38 08/30/24 08:02 08/30/24 08:02 08/29/24 22:28 08/30/24 09:00
Intake & Output
08/28/24 08/29/24 08/30/24 08/31/24
06:59 06:59 06:59 06:59
Intake Total 120 / 120 240 / 240 400 / 400
Balance 120 / 120 240 / 240 400 / 400
Physical Exam
Physical Exam
GEN: No distress, awake, Ox3
HEENT: supple, anicteric, mmm
LUNGS: Mildly decreased breath sounds bilaterally but CTA, no wheezes/rales
CV: Reg, S1/S2, 1/6 syst LSB, no murmur
ABD: soft, BS+, NT/ND
EXT: No edema, clubbing or cyanosis; right radial access site clean dry intact, ecchymosis of right hand distal to access site noted and unchanged from yesterday
NEURO: Gross non-focal
SKIN: No rash, warm, dry, pink
[2024-08-30] MEDS: NOVOLOG FLEXPEN-LOW RESISTANCE 1 UNITS SC (10:42)
[2024-08-30] MEDS: LOW STRENGTH ASPIRIN 81 MG PO (10:44)
[2024-08-30] MEDS: ZOLOFT 25 MG PO (10:44)
[2024-08-30] MEDS: TOPROL XL 12.5 MG PO ×2 (10:44→20:11)
[2024-08-30] MEDS: NORVASC 5 MG PO (10:45)
[2024-08-30] MEDS: VITAMIN D3 (cholecalciferol) 25 MCG PO (10:46)
[2024-08-30] MEDS: NOVOLOG FLEXPEN-LOW RESISTANCE SC ×2 (13:26→18:11)
--- NOTE | 2024-08-30 15:24 | PTCARENOTE ---
received patient this am , patient sleeping but easily aroused. monitor shows NSR, VSS. IV heparin @ 1300units/hr without difficulties.
[2024-08-30] MEDS: LIPITOR 40 MG PO (17:21)
[2024-08-30 18:12] LABS: Glucose - Point of Care 122 mg/dl (70-99)
[2024-08-30 21:29] LABS: Glucose - Point of Care 176 mg/dl (70-99)
[2024-08-31] MEDS: HEPARIN 25000 UNITS/250 ML IV ×2 (02:23→20:40)
[2024-08-31 04:06] VITALS: BP 149/60
[2024-08-31 04:36] LABS: Hematocrit 34.8 % (37.0-47.0); Hemoglobin 11.8 g/dL (12.0-16.0); Mean Corp Hgb Conc. 33.9 g/dL (33.0-37.0); Mean Corpuscular Hgb 28.4 pg (27.0-31.0); Mean Corpuscular Volume 83.9 fL (81.0-99.0); Mean Platelet Volume 8.9 fL (7.4-10.4); Platelet Count 279 10^3/uL (130-400); Red Blood Cell Count 4.15 10^6/uL (4.20-5.40); Red Cell Dist. Width 12.9 % (11.5-14.5); White Blood Cell Count 5.3 10^3/uL (4.8-10.8)
[2024-08-31 05:03] LABS: APTT 87.7 Sec (23.4-35.0)
[2024-08-31 05:21] LABS: Blood Urea Nitrogen 7 mg/dl (7-17); Calcium 9.5 mg/dl (8.4-10.2); Carbon Dioxide 26 mmol/L (22-30); Chloride 102 mmol/L (98-107); Estimated Creatinine Clearance 63 ml/min; Glucose 140 mg/dl (70-99); Potassium 3.9 mmol/L (3.5-5.1); Sodium 135 mmol/L (135-145); eGFR > 60.00
[2024-08-31 05:39] LABS: Magnesium 1.7 mg/dl (1.6-2.3)
[2024-08-31] MEDS: SYMBICORT 80/4.5 MCG INHALER 2 PUFF INH ×2 (07:26→19:43)
[2024-08-31] MEDS: SPIRIVA RESPIMAT 2.5 MCG 2 PUFF INH (07:26)
[2024-08-31] MEDS: VENTOLIN NEBULES 2.5 MG INH ×3 (07:26→19:43)
--- NOTE | 2024-08-31 07:40 | W.PN.HOSP.TC ---
Addendum entered and electronically signed by Liz Rodriguez MD 08/31/24 16:15:
I saw and evaluated the patient. I reviewed the resident�s note and agree with findings and plan as documented in the resident�s note except for changes in my documentation
Addendum entered and electronically signed by Liz Rodriguez MD 08/31/24 15:57:
Seen earlier. Late documentation.
79-year-old female admitted with chest pain was found to have non-STEMI had a cardiac cath on 08/27/2024 showing multivessel disease
TTE-normal LV size, low normal systolic function. No regional wall motion abnormalities. EF 50 to 55%. Mild concentric LVH. Normal diastolic function.
Cardiac cath 08/28/2024-left dominant circulation. Multivessel disease. Normal LVEDP
CT chest-no thoracic aortic aneurysm. Mild to moderate calcification of the thoracic aorta. Mild calcification of aortic valve. Coronary artery calcifications present. Moderate to severe changes of emphysema. Mild bilateral apical pleural
parenchymal scarring.
CVS: S1-S2 normal
Chest: CTA B/L
Abdomen: Soft, NT / Bowel sounds present
Extremities: No edema
# Non-STEMI
Troponin peaked at 2.6
Cardiac cath with multivessel disease
Cardiothoracic surgery consulted to evaluate for CABG
CT surgery feels that the patient is high risk for single lung ventilation indicated from pulmonary input therefore recommending PCI
PCI planned for 09/02/2024 due to the availability of CT surgery backup. Benefits and risks were discussed by cardiology with the patient and daughter
Continue heparin drip, aspirin, statin, metoprolol
# COPD/emphysema-status post steroids in the ER. Continue DuoNebs and Trelegy Ellipta or equivalent
# Hypertension-continue metoprolol, amlodipine
# Hypokalemia-resolved
# Diabetes-hemoglobin A1c 6.5
Diabetic diet/sliding scale coverage
Holding glimepiride
we can consider SGLT2 inhibitors , dunham check
# Hyperlipidemia-continue statin
# Anxiety and depression-continue Zoloft
# Ex-smoker
# DVT prophylaxis-heparin drip
# Full code
D/W nursing
Discussed with daughter at bedside
Discussed with cardiology
Original Note:
Today's Communication/Plan
-
Continue heparin GTT
Start Protonix
Assessment / Plan
Assessment / Plan
Ms. Mena Post is a 79 yo woman with hx COPD, HLD, NIDDM, recent outpatient treatment of shortness of breath with steroids presents to the ER with chest pressure resolved with nitroglycerin, found to have NSTEMI. She is s/p cardiac cath on 08/27
showing multivessel disease. Evaluated by CT surgery, recommended proceeding with PCI.
Assessment/plan:
#NSTEMI
-Most likely LAD stenosis.
-Troponin peaked at 2.61.
-S/p cardiac cath 08/28 which showed multivessel coronary artery disease.
-PCI for 09/02 per cardiology, patient not a candidate for single lung ventilation (Dr. Marcus).
-Continue ASA 81 mg PO, AUTOMOTIVE DIAGNOSTIC TECHNICIAN statin.
-IV Heparin gtt.
-Continue Toprol XL 12.5 PO daily.
-Appreciate cardiology, pulmonology.
#COPD
-No active wheezing on exam.
-Continue DuoNebs and rescue inhalers
#Essential HTN
-Continue AUTOMOTIVE DIAGNOSTIC TECHNICIAN Amlodipine
#NIDDM
-Hold AUTOMOTIVE DIAGNOSTIC TECHNICIAN Glimepiride
-Continue low ISS with Accu-Cheks
Diet: Carb controlled.
DVT PPx Heparin gtt
GI PPx: Protonix
CODE STATUS: FULL CODE
Data:
CXR 08/26/2024:
No acute disease of the chest.
TTE 08/26/2024:
Normal left ventricular size. Low normal left ventricular systolic function. No
regional wall motion abnormalities are seen. LV ejection fraction is 50-55% by
volumetric assessment. Mild concentric left ventricular hypertrophy. Normal
diastolic function.
Normal right ventricular size and function.
No significant valvular pathology
Cardiac Cath 08/28/24
1. Left dominant circulation.
2. Ostial LAD has eccentric 70 to 75% stenosis. Mid LAD has calcified hazy tubular 70 to 75% stenosis which is likely culprit of presenting NSTEMI.
3. The ramus intermedius branch is a medium caliber vessel. There is eccentric ostial 50% stenosis. Midportion of the vessel has 50 to 60% tubular stenosis.
4. The left circumflex artery is a large-caliber, dominant vessel which gives rise to 2 major obtuse marginal branches, the left posterolateral branch and the left posterior descending artery. There is mild diffuse atherosclerotic plaque.
5. Normal LVEDP
Anticipated Discharge: > 48 hours
Subjective/Interval History
-
Date of Service: August 31, 2024
Patient seen and examined with daughter by bedside. No acute complaints today. Would like to know the plan for PCI.
Objective Data
-
Labs:
Laboratory Results
08/31/24
04:16
WBC 5.3
Hgb 11.8 L
Hct 34.8 L
Plt Count 279
APTT 87.7 H
Sodium 135
Potassium 3.9
Chloride 102
Carbon Dioxide 26
BUN 7
Creatinine 0.7
Glucose 140 H
Calcium 9.5
Vital Signs:
Vital Signs
Temp Pulse Resp BP Pulse Ox
98 F 73 16 149/60 96
08/31/24 04:18 08/31/24 07:30 08/31/24 07:30 08/31/24 04:06 08/31/24 07:30
I&O
08/30/24 08/31/24 09/01/24
06:59 06:59 06:59
Intake Total 400 / 400 156 / 156
Balance 400 / 400 156 / 156
Review of Systems
-
History Source: Patient
All other systems: Reviewed and negative
Physical Exam
-
General: Well Developed and Comfortable
HEENT: Normocephalic
Respiratory: Clear to Auscultation and Decreased Breath Sounds
Cardiac: Regular Rhythm and S1/S2
GI: Soft
Musculoskeletal: Normal Gait & Station
Neuro: Awake, Alert, Oriented and AO x 3
Psych: Calm
Data Reviewed
-
Diagnostic Radiology: Report Reviewed by me
Labs: Labs Reviewed by me and Discussed with Physician
[2024-08-31 08:07] VITALS: BP 142/64
--- NOTE | 2024-08-31 08:16 | W.PN.UPDATE ---
Update Note
Progress Note Update
Case was discussed with Dr. Marcus. As indicated by pulmonary input, she would be too high risk for single lung ventilation. Would recommend proceeding with PCI. CT surgery will sign off at this time.
[2024-08-31 08:21] LABS: Glucose - Point of Care 162 mg/dl (70-99)
[2024-08-31] MEDS: NOVOLOG FLEXPEN-LOW RESISTANCE 1 UNITS SC (10:44)
[2024-08-31] MEDS: LOW STRENGTH ASPIRIN 81 MG PO (10:47)
[2024-08-31] MEDS: MAGNESIUM OXIDE 500 MG PO (10:47)
[2024-08-31] MEDS: TOPROL XL 12.5 MG PO ×2 (10:47→20:34)
[2024-08-31] MEDS: NORVASC 5 MG PO (10:49)
[2024-08-31] MEDS: VITAMIN D3 (cholecalciferol) 25 MCG PO (10:49)
[2024-08-31] MEDS: ZOLOFT 25 MG PO (10:49)
--- NOTE | 2024-08-31 11:19 | W.PN.CARDCBS ---
Addendum entered and electronically signed by Kolby Young MD 08/31/24 13:54:
79-year-old woman admitted 8 with chest discomfort and elevated troponin 0.108, baseline history of COPD. Cardiac catheterization revealed ostial LAD stenosis 70 to 75%, 70 to 75% mid stenosis, ostial ramus, mid 50 to 60% with luminal
irregularities of circumflex and RCA, EF 50 to 55%
Medications: Albuterol, metoprolol ER 12.5 twice daily, amlodipine 5 mg daily, sertraline 25 mg a day, aspirin 81 mg a day, atorvastatin 40 mg a day, IV heparin, Spiriva, Symbicort, pantoprazole
142/73, pulse 77, respirate 20, afebrile, no distress, body habitus of COPD, slightly coarse breath sounds, regular rate and rhythm, abdomen benign extremities without edema
Hemoglobin 11.8, white count 5.3, platelets 279, BUN and creatinine 7 and 0.7, potassium 3.9
Impression:
NSTEMI, peak troponin 2.6
COPD
Hypertension
Hyperlipidemia
Hyperglycemia
Plan:
Continue heparin
PCI on September 02
Original Note:
Today's Communication / Plan
-
Heparin gtt renewed
Started Protonix
Reviewed with patient and daughter at length the plans for PCI on Saturday
53 min face to face and chart prep and coordination of care
Impression / Plan
-
PCP: Dr. Olmstead
Card: None
Pulm: Dr. Marcus
Impression:
Presented 08/26/2024 with chest pain, shortness of breath and abnormal troponin
NSTEMI, troponin peaked 2.61
CAD with 70-75% ostial LAD and 79-75% hazy mid LAD lesions by cath 08/27/24
COPD
Emphysema
Former smoker
HTN
Hyperlipidemia
Hyperglycemia
Echo 08/26/2024: EF 50 to 55%. Mild concentric LVH. No significant valvular disease.
Echo 08/06/2022: EF 50 to 55%, no WMA, no significant valvular abnormalities
Cardiac cath 08/27/2024: Left main: LI. LAD ostial 70 to 75% stenosis, mid hazy 70 to 75% stenosis. Ramus: Ostial 50%, mid 50 to 60%. Left circumflex: LI. RCA: LI
Plan:
-Patient with chest pain described as tightness on admission and Troponin peaked at 2.61. Patient had cardiac cath that showed LAD disease as outlined above. Patient was evaluated by CT surgery team and was felt to be high risk for CABG including
robotic assisted procedures. Case reviewed with interventional cardiology and plan is to offer PCI.
-Talked with patient and one of her daughters in the room 08/31/24 and reviewed plans for PCI on 09/02/[address] of [address] surgery for backup. Spent time explaining plans for cath and the possibility of emergency surgery and also
what that might entail including need for vent support. Patient expressed hesitation about being placed on a vent and stated that she would not want to be on a vent long-term and with her daughter present stated that if she could not be weaned from
vent that she would want comfort care and terminal extubation. Also discussed possibility of medical management of CAD.
-For now, no chest pain while on Heparin gtt. Heparin gtt renewed by me 08/31/24.
-Aspirin started this admission and Hgb has been stable without reports of BRBPR or melena.
-Start Protonix 40 mg daily, ordered by me
-New to Toprol XL 12.5 mg BID this admission and tolerating all doses thus far. No wheezing
-LDL 99 and new to atorvastatin 40 mg daily. Patient was taking pitavastatin 2 mg daily prior to admission
-If Cre is stable post-cath then will start lisinopril 2.5 mg daily with outpatient BMP in 1-2 weeks
-Outpatient dose of amlodipine 5 mg daily has been continued
-HgbA1c 6.5%, was on glimepiride as outpatient. Could consider transition to SGLT2 inhibitor
HPI 08/26/24: Patient came to ER today with CP that started at 0530 this morning and cardiology is consulted after her troponin was found to be elevated. 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
her on trazodone BID, but patient instead took in PM only and half the dose that her PCP prescribed and initially this helped her insomnia, but then she felt tired all of the time and the insomnia returned so about a week and a half ago she stopped
trazodone. Patient says that 6 days ago she was walking in the grocery store and had central to left-sided chest pain that improved with resting. She was SOB as well. Patient does not normally have chest pain walking the grocery store and this was
unusual. Patient then able to drive to a friend's home and then home, but has not tried to walk a long distance since that episode. Patient was awake through last night with insomnia and started with central to left-sided chest pain around 0530 this
morning and it lasted for an hour and she called her family who called 911. Paramedics gave patient NTG SL x1 that resolved pain completely and pain had not recurred. Initial ECG in the ER without ST elevations and Troponin was 0.108. Heparin gtt
started. Patient also reporting intermittent dependent edema described as worse when she is on her feet and better after laying down. Also reports weight gain and bloating, but no orthopnea.
Progress Note - Pathology Laboratory Technologist
Subjective
Date of Service: August 31, 2024
No chest pain
Objective
Labs:
08/31/24 04:16
08/31/24 04:16
Labs
Hgb 11.8 g/dL (12.0-16.0) L 08/31/24 04:16
Hct 34.8 % (37.0-47.0) L 08/31/24 04:16
Plt Count 279 10^3/uL (130-400) 08/31/24 04:16
PT 13.3 Sec (11.4-14.6) 08/28/24 08:25
INR 0.98 08/28/24 08:25
APTT 87.7 Sec (23.4-35.0) H 08/31/24 04:16
Sodium 135 mmol/L (135-145) 08/31/24 04:16
Potassium 3.9 mmol/L (3.5-5.1) 08/31/24 04:16
BUN 7 mg/dl (7-17) 08/31/24 04:16
Creatinine 0.7 mg/dL (0.6-1.0) 08/31/24 04:16
Glucose 140 mg/dl (70-99) H 08/31/24 04:16
Vital Signs and I&O:
Vital Signs
Temp Pulse Resp BP Pulse Ox
98.5 F 77 20 142/73 95
08/31/24 08:07 08/31/24 10:49 08/31/24 08:07 08/31/24 10:49 08/31/24 09:38
Vital Signs
Temp Pulse Resp BP Pulse Ox
98.5 F 77 20 142/73 95
08/31/24 08:07 08/31/24 10:49 08/31/24 08:07 08/31/24 10:49 08/31/24 09:38
Intake & Output
08/29/24 08/30/24 08/31/24 09/01/24
06:59 06:59 06:59 06:59
Intake Total 240 / 240 400 / 400 156 / 156
Balance 240 / 240 400 / 400 156 / 156
Physical Exam
Physical Exam
GEN: NAD. AAOx3
HEENT: EOMI, MMM
LUNGS: RA. No audible wheeze
CV: SR on tele.
EXT: No edema B/L
NEURO: Gross non-focal
SKIN: No rash
[2024-08-31 11:27] VITALS: BP 129/62
[2024-08-31 13:23] VITALS: BMI 28.3
[2024-08-31 13:54] LABS: Glucose - Point of Care 131 mg/dl (70-99)
[2024-08-31] MEDS: NOVOLOG FLEXPEN-LOW RESISTANCE SC (13:57)
[2024-08-31] MEDS: PROTONIX 40 MG PO (13:59)
--- NOTE | 2024-08-31 14:28 | CM ---
Chart reviewed. Patient is going for a PCI in 09/02. Patient is independent of ADLS, lives alone in a [address], 1st floor set up, 2 ALFRED, 0 DME. Plan is for the patient to return home. CM to follow
[2024-08-31 14:53] VITALS: BP 106/47
--- NOTE | 2024-08-31 17:00 | CM ---
Addendum entered by Lazara Daniel RN 09/01/24 12:30:
Pricing on Jardiance is at the same cost. Patient expressed concerns about the dunham, especially combined with her Trelegy. I notified Ayesha Howard
Original Note:
Pricing on Farxiga 10mg daily through the patient's [employer] Prescription Plan is $117 for a 30 day supply.
[2024-08-31] MEDS: LIPITOR 40 MG PO (17:54)
[2024-08-31 18:26] LABS: Glucose - Point of Care 259 mg/dl (70-99)
[2024-08-31] MEDS: NOVOLOG FLEXPEN-LOW RESISTANCE 3 UNITS SC (18:35)
[2024-08-31 18:51] VITALS: BP 126/51
[2024-08-31 22:58] LABS: Glucose - Point of Care 116 mg/dl (70-99)
[2024-08-31 23:48] VITALS: BP 129/56
[2024-09-01] VITALS (8 sets, daily range): BP systolic 103–143; BP diastolic 48–73; PULSE 77; O2SAT 93
--- NOTE | 2024-09-01 01:58 | PTCARENOTE ---
Assumed care of the pt @ 1900. Pt AAOx3 SR on the monitor VSS. Heparin gtt infusing @1300 units HR. Pt is independent in the room. Call arambula within reach.
[2024-09-01 03:50] LABS: Hematocrit 34.8 % (37.0-47.0); Hemoglobin 11.6 g/dL (12.0-16.0); Mean Corp Hgb Conc. 33.3 g/dL (33.0-37.0); Mean Corpuscular Hgb 27.6 pg (27.0-31.0); Mean Corpuscular Volume 82.7 fL (81.0-99.0); Mean Platelet Volume 8.8 fL (7.4-10.4); Platelet Count 296 10^3/uL (130-400); Red Blood Cell Count 4.21 10^6/uL (4.20-5.40); Red Cell Dist. Width 13.2 % (11.5-14.5); White Blood Cell Count 5.7 10^3/uL (4.8-10.8)
[2024-09-01 04:11] LABS: APTT 119.7 Sec (23.4-35.0)
[2024-09-01 04:14] LABS: Blood Urea Nitrogen 8 mg/dl (7-17); Calcium 9.3 mg/dl (8.4-10.2); Carbon Dioxide 26 mmol/L (22-30); Chloride 101 mmol/L (98-107); Estimated Creatinine Clearance 63 ml/min; Glucose 135 mg/dl (70-99); Potassium 3.5 mmol/L (3.5-5.1); Sodium 136 mmol/L (135-145); eGFR > 60.00
--- NOTE | 2024-09-01 06:54 | W.PN.HOSP.TC ---
Today's Communication/Plan
-
Continue heparin drip
PCI for tomorrow.
Assessment / Plan
Assessment / Plan
Ms. Mena Post is a 79 yo woman with hx COPD, HLD, NIDDM, admitted with chest discomfort and elevated troponin 0.108, baseline history of COPD. Cardiac catheterization revealed ostial LAD stenosis 70 to 75%, 70 to 75% mid stenosis, ostial
ramus, mid 50 to 60% with luminal irregularities of circumflex and RCA, EF 50 to 55%. She is s/p cardiac cath on 08/27 showing multivessel disease. Evaluated by CT surgery, recommended proceeding with PCI.
Assessment/plan:
#NSTEMI
-TTE showed normal LV size with EF 50 to 55% and concentric LVH.
-Troponin peaked at 2.61.
-S/p cardiac cath 08/28 which showed multivessel coronary artery disease.
-CT chest negative for thoracic aortic aneurysm but coronary artery calcifications present.
-PCI planned for 09/02 per cardiology, nonavailability.
-Patient evaluated by CT surgery, not a candidate for single lung ventilation (Dr. Marcus).
-Continue heparin drip, ASA, Toprol, and FAMILY LIFE COUNSELOR statin.
-Appreciate cardiology, pulmonology.
#COPD
-No active wheezing on exam.
-Continue DuoNebs and rescue inhalers
#Essential HTN
-Continue FAMILY LIFE COUNSELOR Amlodipine
#NIDDM
-A1c 6.5.
-Hold FAMILY LIFE COUNSELOR Glimepiride
-Continue low ISS with Accu-Cheks
-Consider SGLT2 inhibitors on discharge, CM to check dunham.
#Anxiety and depression
-Continue Zoloft
#Hyperlipidemia
-On Pitavastatin FAMILY LIFE COUNSELOR
Diet: Carb controlled.
DVT PPx Heparin gtt
GI PPx: Protonix
CODE STATUS: FULL CODE
Data:
CXR 08/26/2024:
No acute disease of the chest.
TTE 08/26/2024:
Normal left ventricular size. Low normal left ventricular systolic function. No
regional wall motion abnormalities are seen. LV ejection fraction is 50-55% by
volumetric assessment. Mild concentric left ventricular hypertrophy. Normal
diastolic function.
Normal right ventricular size and function.
No significant valvular pathology
Cardiac Cath 08/28/24
1. Left dominant circulation.
2. Ostial LAD has eccentric 70 to 75% stenosis. Mid LAD has calcified hazy tubular 70 to 75% stenosis which is likely culprit of presenting NSTEMI.
3. The ramus intermedius branch is a medium caliber vessel. There is eccentric ostial 50% stenosis. Midportion of the vessel has 50 to 60% tubular stenosis.
4. The left circumflex artery is a large-caliber, dominant vessel which gives rise to 2 major obtuse marginal branches, the left posterolateral branch and the left posterior descending artery. There is mild diffuse atherosclerotic plaque.
5. Normal LVEDP
Anticipated Discharge: > 48 hours
Subjective/Interval History
-
Date of Service: September 01, 2024
Patient seen and examined lying in bed in no acute distress. Reports no acute symptoms. No acute events reported overnight. Patient is willing for PCI scheduled for tomorrow.
Objective Data
-
Labs:
Laboratory Results
09/01/24 09/01/24
03:05 11:30
WBC 5.7
Hgb 11.6 L
Hct 34.8 L
Plt Count 296
APTT 119.7 H Pending
Sodium 136
Potassium 3.5
Chloride 101
Carbon Dioxide 26
BUN 8
Creatinine 0.7
Glucose 135 H
Calcium 9.3
Vital Signs:
Vital Signs
Temp Pulse Resp BP Pulse Ox
97.9 F 78 20 143/73 95
09/01/24 02:59 09/01/24 02:59 09/01/24 02:59 09/01/24 02:58 09/01/24 02:59
I&O
08/30/24 08/31/24 09/01/24
06:59 06:59 06:59
Intake Total 400 / 400 156 / 156
Balance 400 / 400 156 / 156
Review of Systems
-
History Source: Patient
All other systems: Reviewed and negative
Physical Exam
-
General: Well Developed and Comfortable
HEENT: Normocephalic
Respiratory: Clear to Auscultation and Decreased Breath Sounds
Cardiac: Regular Rhythm and S1/S2
GI: Soft
Musculoskeletal: No Cyanosis, No Edema and Normal Gait & Station
Skin: Warm and Dry
Neuro: Awake, Alert, Oriented and AO x 3
Psych: Calm
Data Reviewed
-
Diagnostic Radiology: Report Reviewed by me
Labs: Labs Reviewed by me and Discussed with Physician
[2024-09-01] MEDS: VENTOLIN NEBULES 2.5 MG INH ×3 (07:15→20:21)
[2024-09-01] MEDS: SPIRIVA RESPIMAT 2.5 MCG 2 PUFF INH (07:15)
[2024-09-01] MEDS: SYMBICORT 80/4.5 MCG INHALER 2 PUFF INH ×2 (07:15→20:21)
[2024-09-01] MEDS: PROTONIX 40 MG PO (08:36)
[2024-09-01] MEDS: LOW STRENGTH ASPIRIN 81 MG PO (08:36)
[2024-09-01] MEDS: NORVASC 5 MG PO (08:37)
[2024-09-01] MEDS: ZOLOFT 25 MG PO (08:37)
[2024-09-01] MEDS: TOPROL XL 12.5 MG PO ×2 (08:37→20:36)
[2024-09-01] MEDS: MAGNESIUM OXIDE 500 MG PO (08:37)
[2024-09-01] MEDS: VITAMIN D3 (cholecalciferol) 25 MCG PO (08:38)
[2024-09-01 08:45] LABS: Glucose - Point of Care 183 mg/dl (70-99)
[2024-09-01] MEDS: NOVOLOG FLEXPEN-LOW RESISTANCE 1 UNITS SC ×2 (09:42→18:30)
--- NOTE | 2024-09-01 12:00 | W.PN.CARDCBS ---
Addendum entered and electronically signed by Candace Juarez MD 09/01/24 18:14:
I saw and examined the patient.
The Physician Non Invasive Cardiologist's note was reviewed and I agree with the note.
Comment: Ms. Post is doing well and has not had any recurrent chest pain. No issues at the right radial access site.
Vital signs reviewed. Lab work reviewed. On exam patient is well-appearing, no acute distress, out of bed into a chair, regular rate, normal S1 and S2, no murmurs, rubs or gallops, no carotid bruits, no JVD, lungs are clear to auscultation
bilaterally, abdomen is soft, nontender, nondistended with active bowel sounds, warm extremities without significant edema.
Recommendations:
1. Extensive discussion was had with patient, and her daughter at bedside. We reviewed CT surgery input and given her poor pulmonary function at baseline, high risk nature that pursuing open heart surgery would expose her to. And a heart team
discussion after shared decision making with patient the plan is to move forward with PCI of mid and ostial LAD tomorrow.
2. We will plan to load her with Brilinta 180 mg daily and continue 90 mg twice daily starting tomorrow morning in the setting of ACS.
3. Continue optimization of medical therapy for underlying CAD.
4. Aggressive management of cardiovascular risk factors.
5. N.p.o. after midnight with overnight lab work.
6. Eventual referral for outpatient cardiac rehab.
Candace Juarez MD, [facility], [facility]
Original Note:
Today's Communication / Plan
-
Cath in AM, added to schedule by me
Impression / Plan
-
PCP: Dr. Olmstead
Card: None
Pulm: Dr. Marcus
Impression:
Presented 08/26/2024 with chest pain, shortness of breath and abnormal troponin
NSTEMI, troponin peaked 2.61
CAD with 70-75% ostial LAD and 79-75% hazy mid LAD lesions by cath 08/27/24
COPD
Emphysema
Former smoker
HTN
Hyperlipidemia
Hyperglycemia
Echo 08/26/2024: EF 50 to 55%. Mild concentric LVH. No significant valvular disease.
Echo 08/06/2022: EF 50 to 55%, no WMA, no significant valvular abnormalities
Cardiac cath 08/27/2024: Left main: LI. LAD ostial 70 to 75% stenosis, mid hazy 70 to 75% stenosis. Ramus: Ostial 50%, mid 50 to 60%. Left circumflex: LI. RCA: LI
Plan:
-No chest pain overnight, but feeling tired and sleeping when seen on rounds at 1030.
-Chest pain on admission and Troponin peaked at 2.61. Cardiac cath showed LAD disease as outlined above. Patient was evaluated by CT surgery team and was felt to be high risk for CABG including robotic assisted procedures. Case reviewed with
interventional cardiology and plan is to offer PCI with CT surgery backup on 09/02/24.
-Hospitalization thus far reviewed with patient and daughter on 08/31/[address] Juarez to see patient 09/01/24 to review plans again.
-No chest pain while on Heparin gtt. Hgb stable
-New to aspirin 81 mg daily this admission
-New to Protonix 40 mg daily
-New to Toprol XL 12.5 mg BID this admission and tolerating all doses thus far. No wheezing
-LDL 99 and new to atorvastatin 40 mg daily. Patient was taking pitavastatin 2 mg daily prior to admission
-If Cre is stable post-cath then will start lisinopril 2.5 mg daily with outpatient BMP in 1-2 weeks
-Outpatient dose of amlodipine 5 mg daily has been continued
-HgbA1c 6.5%, was on glimepiride as outpatient. Could consider transition to SGLT2 inhibitor
HPI 08/26/24: Patient came to ER today with CP that started at 0530 this morning and cardiology is consulted after her troponin was found to be elevated. 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
her on trazodone BID, but patient instead took in PM only and half the dose that her PCP prescribed and initially this helped her insomnia, but then she felt tired all of the time and the insomnia returned so about a week and a half ago she stopped
trazodone. Patient says that 6 days ago she was walking in the grocery store and had central to left-sided chest pain that improved with resting. She was SOB as well. Patient does not normally have chest pain walking the grocery store and this was
unusual. Patient then able to drive to a friend's home and then home, but has not tried to walk a long distance since that episode. Patient was awake through last night with insomnia and started with central to left-sided chest pain around 0530 this
morning and it lasted for an hour and she called her family who called 911. Paramedics gave patient NTG SL x1 that resolved pain completely and pain had not recurred. Initial ECG in the ER without ST elevations and Troponin was 0.108. Heparin gtt
started. Patient also reporting intermittent dependent edema described as worse when she is on her feet and better after laying down. Also reports weight gain and bloating, but no orthopnea.
Progress Note - Psychology Tech
Subjective
Date of Service: September 01, 2024
No chest pain, likes to sleep prone
Objective
Labs:
09/01/24 03:05
09/01/24 03:05
Labs
Hgb 11.6 g/dL (12.0-16.0) L 09/01/24 03:05
Hct 34.8 % (37.0-47.0) L 09/01/24 03:05
Plt Count 296 10^3/uL (130-400) 09/01/24 03:05
PT 13.3 Sec (11.4-14.6) 08/28/24 08:25
INR 0.98 08/28/24 08:25
APTT 119.7 Sec (23.4-35.0) H 09/01/24 03:05
Sodium 136 mmol/L (135-145) 09/01/24 03:05
Potassium 3.5 mmol/L (3.5-5.1) 09/01/24 03:05
BUN 8 mg/dl (7-17) 09/01/24 03:05
Creatinine 0.7 mg/dL (0.6-1.0) 09/01/24 03:05
Glucose 135 mg/dl (70-99) H 09/01/24 03:05
Vital Signs and I&O:
Vital Signs
Temp Pulse Resp BP Pulse Ox
97.6 F 80 18 143/73 94
09/01/24 11:22 09/01/24 07:50 09/01/24 11:22 09/01/24 02:58 09/01/24 11:22
Vital Signs
Temp Pulse Resp BP Pulse Ox
97.6 F 80 18 143/73 94
09/01/24 11:22 09/01/24 07:50 09/01/24 11:22 09/01/24 02:58 09/01/24 11:22
Intake & Output
08/30/24 08/31/24 09/01/24 09/02/24
06:59 06:59 06:59 06:59
Intake Total 400 / 400 156 / 156
Balance 400 / 400 156 / 156
Physical Exam
Physical Exam
GEN: NAD. AAOx3
HEENT: EOMI, MMM
LUNGS: RA. No audible wheeze
CV: SR on tele.
EXT: No edema B/L
NEURO: Gross non-focal
SKIN: No rash
Scores
CÉSAR for NSTEMI
Age >/= 65: Yes
>/=3 CAD risk factors-HTN,High Chol,Fam hx CAD,DM,Smoker: Yes
Known CAD (stenosis >/=50%): No
ASA use in past 7 days: No
Severe angina (>/= 2 episodes in 24 hrs): Yes
EKG ST Changes >/= 0.5mm: No
Positive cardiac marker: Yes
Score: 4
Risk at 14 days-mortality, new/recurrent MN, severe ischemia: Intermediate Risk- 20% Risk at 14 days- all cause mortality, new or recurrent MN, or severe recurrent ischemia requiring urgent revascularization
[2024-09-01 13:55] LABS: Glucose - Point of Care 237 mg/dl (70-99)
[2024-09-01] MEDS: NOVOLOG FLEXPEN-LOW RESISTANCE 300 UNITS SC (13:58)
--- NOTE | 2024-09-01 14:08 | W.PN.UPDATE ---
Update Note
Progress Note Update
Seen earlier. Late documentation.
I saw and evaluated the patient. I reviewed the resident�s note and agree with findings and plan as documented in the resident�s note except for changes in my documentation.
79-year-old female admitted with chest pain was found to have non-STEMI had a cardiac cath on 08/27/2024 showing multivessel disease
TTE-normal LV size, low normal systolic function. No regional wall motion abnormalities. EF 50 to 55%. Mild concentric LVH. Normal diastolic function.
Cardiac cath 08/28/2024-left dominant circulation. Multivessel disease. Normal LVEDP
CT chest-no thoracic aortic aneurysm. Mild to moderate calcification of the thoracic aorta. Mild calcification of aortic valve. Coronary artery calcifications present. Moderate to severe changes of emphysema. Mild bilateral apical pleural
parenchymal scarring.
CVS: S1-S2 normal
Chest: CTA B/L
Abdomen: Soft, NT / Bowel sounds present
Extremities: No edema
# Non-STEMI
Troponin peaked at 2.6
Cardiac cath with multivessel disease
Cardiothoracic surgery consulted to evaluate for CABG
CT surgery feels that the patient is high risk for single lung ventilation indicated from pulmonary input therefore recommending PCI
PCI planned for 09/02/2024 due to the availability of CT surgery backup. Benefits and risks were discussed by cardiology with the patient and daughter
Continue heparin drip, aspirin, statin, metoprolol
# COPD/emphysema-status post steroids in the ER. Continue DuoNebs and Trelegy Ellipta or equivalent
# Hypertension-continue Metoprolol, Amlodipine
# Hypokalemia-resolved
# Diabetes-hemoglobin A1c 6.5
Diabetic diet/sliding scale coverage
Holding glimepiride for tomorrow
Give a now dose.
we can consider SGLT2 inhibitors , but dunham is over $110 and pt cant afford.
# Hyperlipidemia-continue statin
# Anxiety and depression-continue Zoloft
# Ex-smoker
# DVT prophylaxis-heparin drip
# Full code
D/W nursing
Discussed with cardiology
--- NOTE | 2024-09-01 14:21 | CM ---
Chart reviewed. Patient is independent of ADLS, lives alone in a 2 [address], 1st floor set up, 2 ALFRED, 0 DME. Plan is for the patient to return home. CM to follow
[2024-09-01] MEDS: AMARYL 2 MG PO (15:16)
[2024-09-01] MEDS: BRILINTA 180 MG PO (16:12)
[2024-09-01] MEDS: LIPITOR 40 MG PO (16:13)
[2024-09-01] MEDS: HEPARIN 25000 UNITS/250 ML IV (16:47)
[2024-09-01] MEDS: KCL 40 MEQ PO (17:31)
--- NOTE | 2024-09-01 18:00 | PTCARENOTE ---
Pt denies any chest pain today. Sob with exertion. Room air sat 97%. Heparin infusing as ordered. No other c/o offered.
[2024-09-01 18:10] LABS: Glucose - Point of Care 157 mg/dl (70-99)
[2024-09-01 19:19] LABS: APTT 76.5 Sec (23.4-35.0)
--- NOTE | 2024-09-01 20:38 | PTCARENOTE ---
Assumed care of the pt @ 1900. Pt AAOx3 SR on the monitor VSS. Heparin gtt infusing @ 1100 units/HR. Family at bedside. Call arambula within reach.
[2024-09-01 22:24] LABS: Glucose - Point of Care 97 mg/dl (70-99)
[2024-09-02] VITALS (12 sets, daily range): BP systolic 95–162; BP diastolic 38–85; BMI 28.1
[2024-09-02 03:07] LABS: % Basophils 0.4 % (0-2); % Eosinophils 5.4 % (0-6); % Immature Granulocytes 1.2 % (0-0.5); % Lymphocytes 13.3 % (20.5-51.1); % Monocytes 11.8 % (1.7-9.3); % Neutrophils 67.9 % (42.2-75.2); Absolute Eosinophils 0.3 10^3/uL (0-0.7); Absolute Immature Granulocytes 0.1 10^3/uL (0-0.05); Absolute Lymphocytes 0.8 10^3/uL (1.2-3.4); Absolute Monocytes 0.7 10^3/uL (0.1-0.6); Absolute Neutrophils 3.9 10^3/uL (1.4-6.5); Hematocrit 36.1 % (37.0-47.0); Hemoglobin 11.7 g/dL (12.0-16.0); Mean Corp Hgb Conc. 32.4 g/dL (33.0-37.0); Mean Corpuscular Hgb 27.5 pg (27.0-31.0); Mean Corpuscular Volume 84.9 fL (81.0-99.0); Mean Platelet Volume 8.8 fL (7.4-10.4); Nucleated Red Blood Cells % 0 %; Platelet Count 279 10^3/uL (130-400); Red Blood Cell Count 4.25 10^6/uL (4.20-5.40); Red Cell Dist. Width 13.3 % (11.5-14.5); White Blood Cell Count 5.7 10^3/uL (4.8-10.8)
[2024-09-02 03:40] LABS: APTT 183.1 Sec (23.4-35.0)
[2024-09-02 03:58] LABS: Blood Urea Nitrogen 8 mg/dl (7-17); Calcium 9.7 mg/dl (8.4-10.2); Carbon Dioxide 24 mmol/L (22-30); Chloride 102 mmol/L (98-107); Estimated Creatinine Clearance 55 ml/min; Glucose 126 mg/dl (70-99); Potassium 3.9 mmol/L (3.5-5.1); Sodium 137 mmol/L (135-145); eGFR > 60.00
--- NOTE | 2024-09-02 04:36 | PTCARENOTE ---
PTT result 183.1 @ 0340. Heparin gtt on hold for 2 hours as per protocol. Nixon Pettit NP aware
--- NOTE | 2024-09-02 06:46 | W.PN.HOSP.TC ---
Today's Communication/Plan
-
PCI today
Follow PTT
Assessment / Plan
Assessment / Plan
Ms. Mena Post is a 79 yo woman with hx COPD, HLD, NIDDM, admitted with chest discomfort and elevated troponin 0.108, baseline history of COPD. Cardiac catheterization revealed ostial LAD stenosis 70 to 75%, 70 to 75% mid stenosis, ostial
ramus, mid 50 to 60% with luminal irregularities of circumflex and RCA, EF 50 to 55%. She is s/p cardiac cath on 08/27 showing multivessel disease. Evaluated by CT surgery, recommended proceeding with PCI.
Assessment/plan:
#NSTEMI
-TTE showed normal LV size with EF 50 to 55% and concentric LVH.
-Troponin peaked at 2.61.
-S/p cardiac cath 08/28 which showed multivessel coronary artery disease.
-CT chest negative for thoracic aortic aneurysm but coronary artery calcifications present.
-NPO.
-Plan for PCI of mid and ostial LAD today.
-Patient evaluated by CT surgery, not a candidate for single lung ventilation (Dr. Marcus).
-Continue heparin drip, ASA, Toprol, and ELEVATORS INSPECTOR statin.
-Follow PTT.
-Outpatient cardiac rehab thereafter.
-Cardiology appreciated.
-Appreciate cardiology, pulmonology.
#Intermittent diarrhea
-Cholestyramine 4mg daily ordered, Pt takes at home but not since adnission.
-Will monitor.
#COPD
-No active wheezing on exam.
-Continue DuoNebs and rescue inhalers
#Essential HTN
-Continue ELEVATORS INSPECTOR Amlodipine
#NIDDM
-A1c 6.5.
-Hold ELEVATORS INSPECTOR Glimepiride
-Continue low ISS with Accu-Cheks
-Consider SGLT2 inhibitors on discharge, CM to check dunham.
#Anxiety and depression
-Continue Zoloft
#Hyperlipidemia
-On Pitavastatin ELEVATORS INSPECTOR
Diet: Carb controlled.
DVT PPx Heparin gtt
GI PPx: Protonix
CODE STATUS: FULL CODE
Data:
CXR 08/26/2024:
No acute disease of the chest.
TTE 08/26/2024:
Normal left ventricular size. Low normal left ventricular systolic function. No
regional wall motion abnormalities are seen. LV ejection fraction is 50-55% by
volumetric assessment. Mild concentric left ventricular hypertrophy. Normal
diastolic function.
Normal right ventricular size and function.
No significant valvular pathology
Cardiac Cath 08/28/24
1. Left dominant circulation.
2. Ostial LAD has eccentric 70 to 75% stenosis. Mid LAD has calcified hazy tubular 70 to 75% stenosis which is likely culprit of presenting NSTEMI.
3. The ramus intermedius branch is a medium caliber vessel. There is eccentric ostial 50% stenosis. Midportion of the vessel has 50 to 60% tubular stenosis.
4. The left circumflex artery is a large-caliber, dominant vessel which gives rise to 2 major obtuse marginal branches, the left posterolateral branch and the left posterior descending artery. There is mild diffuse atherosclerotic plaque.
5. Normal LVEDP
Anticipated Discharge: > 48 hours
Subjective/Interval History
-
Date of Service: September 02, 2024
Saw and examined patient today. Patient resting, no recurrent chest pain. Denies nausea, vomiting. Denies fever or chills. She is in no acute distress.
Objective Data
-
Labs:
Laboratory Results
09/01/24 09/02/24 09/02/24
19:01 02:48 11:30
WBC 5.7
Hgb 11.7 L
Hct 36.1 L
Plt Count 279
APTT 76.5 H 183.1 H* Pending
Sodium 137
Potassium 3.9
Chloride 102
Carbon Dioxide 24
BUN 8
Creatinine 0.8
Glucose 126 H
Calcium 9.7
Vital Signs:
Vital Signs
Temp Pulse Resp BP Pulse Ox
97.7 F 68 16 138/53 96
09/02/24 02:53 09/02/24 04:00 09/02/24 02:53 09/02/24 02:45 09/02/24 02:53
I&O
08/31/24 09/01/24 09/02/24
06:59 06:59 06:59
Intake Total 156 / 156
Balance 156 / 156
Review of Systems
-
History Source: Patient
All other systems: Reviewed and negative
Physical Exam
-
General: Well Developed and Comfortable
HEENT: Normocephalic
Respiratory: Clear to Auscultation and Decreased Breath Sounds
Cardiac: Regular Rhythm and S1/S2
GI: Soft
Musculoskeletal: No Cyanosis, No Edema and Normal Gait & Station
Skin: Warm and Dry
Neuro: Awake, Alert, Oriented and AO x 3
Psych: Calm
Data Reviewed
-
Labs: Labs Reviewed by me and Discussed with Physician
[2024-09-02 08:19] LABS: Glucose - Point of Care 107 mg/dl (70-99)
[2024-09-02] MEDS: LOW STRENGTH ASPIRIN 81 MG PO (08:25)
[2024-09-02] MEDS: BRILINTA 90 MG PO ×2 (08:25→21:32)
[2024-09-02] MEDS: NORVASC 5 MG PO (08:26)
[2024-09-02] MEDS: VITAMIN D3 (cholecalciferol) 25 MCG PO (08:26)
[2024-09-02] MEDS: PROTONIX 40 MG PO (08:26)
[2024-09-02] MEDS: TOPROL XL 12.5 MG PO ×2 (08:26→21:32)
[2024-09-02] MEDS: MAGNESIUM OXIDE 500 MG PO (08:26)
[2024-09-02] MEDS: ZOLOFT 25 MG PO (08:27)
[2024-09-02] MEDS: NOVOLOG FLEXPEN-LOW RESISTANCE SC ×3 (08:28→18:23)
[2024-09-02] MEDS: SPIRIVA RESPIMAT 2.5 MCG 2 PUFF INH (08:42)
[2024-09-02] MEDS: ProAIR HFA INHALER 1 PUFF INH (08:42)
[2024-09-02] MEDS: SYMBICORT 80/4.5 MCG INHALER 2 PUFF INH ×2 (08:43→20:47)
--- NOTE | 2024-09-02 09:56 | PTCARENOTE ---
Pt reports having a nose bleed from R nare earlier. Blood noted on tissue but not coming out of her nose, will keep an eye on it, it has currently stopped. Dr Juarez aware. Pt very anxious this morning, Dr Juarez came to speak to her about procedure
(cardiac cath) and Pt is waiting for her daughter to help her decide whether or not she wants to have it done. Dr Juarez will stop back later.
[2024-09-02] MEDS: QUESTRAN 4 GRAM PO (10:28)
--- NOTE | 2024-09-02 11:07 | W.PN.UPDATE ---
Update Note
Progress Note Update
I saw and evaluated the patient. I reviewed the resident�s note and agree with findings and plan as documented in the resident�s note except for changes in my documentation.
79-year-old female admitted with chest pain was found to have non-STEMI had a cardiac cath on 08/27/2024 showing multivessel disease
TTE-normal LV size, low normal systolic function. No regional wall motion abnormalities. EF 50 to 55%. Mild concentric LVH. Normal diastolic function.
Cardiac cath 08/28/2024-left dominant circulation. Multivessel disease. Normal LVEDP
CT chest-no thoracic aortic aneurysm. Mild to moderate calcification of the thoracic aorta. Mild calcification of aortic valve. Coronary artery calcifications present. Moderate to severe changes of emphysema. Mild bilateral apical pleural
parenchymal scarring.
CVS: S1-S2 normal
Chest: CTA B/L
Abdomen: Soft, NT / Bowel sounds present
Extremities: No edema
# Non-STEMI
Troponin peaked at 2.6
Cardiac cath with multivessel disease
Cardiothoracic surgery consulted to evaluate for CABG
CT surgery feels that the patient is high risk for single lung ventilation indicated from pulmonary input therefore recommending PCI
PCI planned for today 09/02/2024 due to the availability of CT surgery backup. Benefits and risks were discussed by cardiology with the patient and daughter
Continue Aspirin, statin, Metoprolol
# COPD/emphysema-status post steroids in the ER. Continue DuoNebs and Trelegy Ellipta or equivalent
# Hypertension-continue Metoprolol, Amlodipine
# Hypokalemia-resolved
# Diabetes-hemoglobin A1c 6.5
Diabetic diet/sliding scale coverage
Restart glimepiride after the procedure
we can consider SGLT2 inhibitors , but dunham is over $110 and pt cant afford.
# Hyperlipidemia-continue statin
# Anxiety and depression-continue Zoloft
# Ex-smoker
# DVT prophylaxis-heparin drip
# Full code
D/W nursing
D/W Family at bed side
[2024-09-02 11:38] LABS: ACT-LR - POC 237 Seconds (116-155)
--- NOTE | 2024-09-02 11:47 | CM ---
Addendum entered by Lazara Daniel RN 09/02/24 14:17:
Patient is agreeable to cost
Original Note:
Pricing on Brilinta through the patient's [facility] is $ 90 and it is stock. I will review pricing with the patient.
[2024-09-02 11:53] LABS: ACT-LR - POC 265 Seconds (116-155)
[2024-09-02 12:10] LABS: ACT-LR - POC 319 Seconds (116-155)
[2024-09-02 12:34] LABS: ACT-LR - POC 297 Seconds (116-155)
[2024-09-02 12:49] LABS: ACT-LR - POC 244 Seconds (116-155)
[2024-09-02 13:50] LABS: Glucose - Point of Care 141 mg/dl (70-99)
[2024-09-02] MEDS: NSS 1000 IV (14:16)
--- NOTE | 2024-09-02 14:35 | PTCARENOTE ---
Rec'd Pt s/p card cath, A,A+Ox3, denies pain. R radial R band intact. R fingers pale and cool, O2 sat 94% on R finger. Pt has gel nails on so pulsox wrapped around finger prox to finger nail.
[2024-09-02 15:34] LABS: Magnesium 1.8 mg/dl (1.6-2.3)
[2024-09-02] MEDS: AMARYL 2 MG PO ×2 (15:51→15:52)
--- NOTE | 2024-09-02 17:54 | ITS.CL.CATH ---
[employer] - Catheterization
Cardiac Catheterization
Procedure Report:
LEFT HEART CATHETERIZATION AND CORONARY INTERVENION
Date of Procedure: September 02, 2024
Referring: Yesi Smith
PROCEDURES:
1. Left heart catheterization, coronary angiogram.
2. Ultrasound-guided access.
3. Successful percutaneous coronary artery invention of a calcified hazy tubular 75% stenosis with one 2.75 x 26 mm Medtronic Caliente drug-eluting stent, postdilated with a 2.75 x 15 mm NC Euphora balloon at 16 lynne distally and 22 lynne proximally with
an excellent angiographic result.
4. Functional physiologic testing with IFR of ostial LAD.
5. Functional physiologic testing with IFR of mid left circumflex artery.
INDICATION: NSTEMI
ACCESS: Right radial artery, 6 Tristanian sheath, under ultrasound guidance
Ultrasound was utilized for vascular access. The radial artery was visualized under ultrasound, and the vessel was patent and pulsatile. An image was stored permanently in the patient's medical record. Under direct ultrasound guidance, a 6 Tristanian
sheath was inserted into the artery using a micropuncture kit through a modified Seldinger technique.
HEMODYNAMICS : (mmHg)
AO (s/d) : 125/59
LV (s/d) : 129/2
LVEDP : 13
CORONARY FINDINGS
DOMINANCE: Left
LEFT MAIN: The left main artery is a large-caliber, short vessel which gives rise to the left anterior descending artery, ramus intermedius branch and the left anterior descending artery. There is minimal luminal irregularities.
LEFT ANTERIOR DESCENDING: The left anterior descending artery is a large-caliber vessel which gives rise to multiple small caliber diagonal branches as it courses to the anterior interventricular groove and wraps around the apex. Ostial LAD has
eccentric 60-70% stenosis, IFR negative at 0.91. Mid LAD has calcified hazy tubular 70 to 75% stenosis which is likely culprit of presenting NSTEMI. This was intervened on today as noted below.
RAMUS INTERMEDIUS: The ramus intermedius branch is a medium caliber vessel. There is eccentric ostial 50% stenosis. Midportion of the vessel has 50 to 60% tubular stenosis.
LEFT CIRCUMFLEX: The left circumflex artery is a large-caliber, dominant vessel which gives rise to 2 major obtuse marginal branches, the left posterolateral branch and the left posterior descending artery. Mid left circumflex with diffuse up to
50% stenosis which is IFR negative at 0.98. Otherwise, there is mild diffuse atherosclerotic plaque.
RIGHT CORONARY ARTERY: The RCA was not selectively shot on the study. On recent diagnostic study, the right coronary artery is a small caliber, nondominant vessel with minimal luminal irregularities.
CORONARY INTERVENTION: The coronary artery was initially selectively engaged using a 6 Tristanian EBU 3.5 guide catheter. Additional heparin was given to maintain therapeutic ACT throughout the case. Given the angulation of the LAD, we then had to
switch the guide out with a XB 3.0 6 Tristanian guide. Even with this guide it was quite challenging and took a lot of manipulation to successfully advance a 190 cm 0.014' BMW coronary wire across the mid LAD lesion into the distal LAD. We predilated
the mid LAD lesion using a 3.0 x 20 mm semi-compliant balloon with good expansion. We subsequently stented the lesion using a 2.75 x 26 mm Medtronic Jeo drug-eluting stent and postdilated the lesion using a 2.75 x 15 mm NC balloon at 16 lynne
distally and 22 lynne proximally with an excellent angiographic result. Patient tolerated the procedure well. She was loaded with 180 mg of Brilinta yesterday and received 90 mg of Brilinta this morning along with baby aspirin. No acute
complications.
HEMODYNAMIC ASSESSMENT OF THE MID LEFT CIRCUMFLEX WITH A VOLCANO OMNI WIRE: We then turned our attention to the mid LCx. Two hundred micrograms of intracoronary nitroglycerin was given through the guide catheter. Using the same XB 3.0 6Fr guide
catheter, a Stanton Omni wire was advanced to the guide catheter tip and normalized just outside the guide catheter. The Omni wire was then carefully manipulated across the stenosis in the mid left circumflex with the iFR above the ischemic
threshold serially measuring 0.98 x 3. The Omni wire was then pulled back to the guide catheter where the Pd/Pa measured 1.0 confirming no baseline drift in pressure readings
HEMODYNAMIC ASSESSMENT OF THE OSTIAL LAD WITH A VOLCANO OMNI WIRE: We then turned our attention to the ostial LAD. the Stanton Omni wire was re-normalized just outside the guide catheter. The Omni wire was then carefully manipulated across the
stenosis in the ostial LAD with the iFR above the ischemic threshold serially measuring 0.93, 0.91, 0.91. The Omni wire was then pulled back to the guide catheter where the Pd/Pa measured 1.0 confirming no baseline drift in pressure readings
SEDATION: 82 minutes of procedural sedation was utilized. An independent medical director of hospice was present to assist with and help manage the patient's level of consciousness and physiologic status.
RADIATION SUMMARY: Fluoro Time (min): 23.5, Dose (mGy): 1401.04, DAP (Gy.cm2) : 63.6
Closure Device: Vascular band over right radial artery, 10 cc of air.
CONCLUSIONS
1. Left dominant circulation.
2. Successful percutaneous coronary artery invention of a calcified hazy tubular 75% stenosis with one 2.75 x 26 mm Medtronic Caliente drug-eluting stent, postdilated with a 2.75 x 15 mm NC Euphora balloon at 16 lynne distally and 22 lynne proximally with
an excellent angiographic result.
3. Ostial LAD has a eccentric 60 to 70% stenosis which is IFR negative at 0.91.
4. Mid left circumflex with diffuse up to 50% stenosis which is IFR negative at 0.98.
5. Normal LVEDP at 13 mmHg.
6. Ramus intermedius branch has an eccentric ostial 50% stenosis and a 50 to 60% tubular stenosis in the midportion. This is a small to medium caliber vessel.
RECOMMENDATIONS
1. Uninterrupted dual antiplatelet therapy with daily baby aspirin and Brilinta 90 mg twice daily for the first 30 days. Given cost of the Brilinta, patient prefers to switch to clopidogrel after the first 30 days as an outpatient.
2. Aggressive management of cardiovascular risk factors.
3. Wean radial band per protocol.
4. Optimization of medical therapy for underlying coronary artery disease.
5. Eventual referral for outpatient cardiac rehab.
Candace Juarez MD, FACC, [facility]
[2024-09-02 17:59] LABS: Glucose - Point of Care 130 mg/dl (70-99)
[2024-09-02] MEDS: VENTOLIN NEBULES INH ×2 (18:05→18:06)
[2024-09-02] MEDS: LIPITOR 40 MG PO (18:22)
[2024-09-02] MEDS: VENTOLIN NEBULES 2.5 MG INH (20:47)
[2024-09-02 21:47] LABS: Glucose - Point of Care 93 mg/dl (70-99)
--- NOTE | 2024-09-02 22:10 | PTCARENOTE ---
Rec'd pt at change of shift. Pt AAO*3, VSS, and SR with 1st degree hb. R radial site CDI. Pt denies any pain or discomfort and agrees to right upper extremity restriction. Pt resting with call arambula in reach. Plan of care ongoing. See MAR and
flowchart for full pt assessment and care.
[2024-09-03 03:47] VITALS: BP 133/51
[2024-09-03 04:02] VITALS: BMI 28.2
[2024-09-03 04:24] LABS: % Basophils 0.3 % (0-2); % Eosinophils 6.1 % (0-6); % Immature Granulocytes 1.5 % (0-0.5); % Lymphocytes 11.3 % (20.5-51.1); % Monocytes 10.8 % (1.7-9.3); Absolute Eosinophils 0.4 10^3/uL (0-0.7); Absolute Immature Granulocytes 0.1 10^3/uL (0-0.05); Absolute Lymphocytes 0.7 10^3/uL (1.2-3.4); Absolute Monocytes 0.6 10^3/uL (0.1-0.6); Absolute Neutrophils 4.1 10^3/uL (1.4-6.5); Hematocrit 36.4 % (37.0-47.0); Hemoglobin 11.9 g/dL (12.0-16.0); Mean Corp Hgb Conc. 32.7 g/dL (33.0-37.0); Mean Corpuscular Hgb 28.3 pg (27.0-31.0); Mean Corpuscular Volume 86.7 fL (81.0-99.0); Mean Platelet Volume 9.4 fL (7.4-10.4); Nucleated Red Blood Cells % 0 %; Platelet Count 258 10^3/uL (130-400); Red Cell Dist. Width 13.7 % (11.5-14.5); White Blood Cell Count 5.9 10^3/uL (4.8-10.8)
[2024-09-03 04:46] LABS: Blood Urea Nitrogen 7 mg/dl (7-17); Glucose 75 mg/dl (70-99)
[2024-09-03 04:47] LABS: Calcium 9.3 mg/dl (8.4-10.2); Carbon Dioxide 21 mmol/L (22-30); Chloride 107 mmol/L (98-107); Estimated Creatinine Clearance 55 ml/min; Potassium 3.9 mmol/L (3.5-5.1); Sodium 135 mmol/L (135-145); eGFR > 60.00
--- NOTE | 2024-09-03 06:55 | W.PN.HOSP.TC ---
Addendum entered and electronically signed by Liz Rodriguez MD 09/03/24 13:04:
I saw and evaluated the patient. I reviewed the resident�s note and agree with findings and plan as documented in the resident�s note.
Patient was seen together this morning
She has no chest pain. Shortness of breath with ambulation at baseline. No change
Oxygen status stable during ambulation
No edema exam otherwise unremarkable
She had an appointment with Dr. Marcus which she could not make it while in here it was rescheduled for 09/07/2024 now.
She has albuterol inhaler and also nebulizer medicine and Trelegy. She is due for 6-minute walk test as outpatient
She understands about change of her medicines including uninterrupted antiplatelet therapy and also change of her statin
Case discussed with cardiology
Discussed with nursing
Total discharge coordination time more than 36 minutes
Original Note:
Today's Communication/Plan
-
Discharge planning
Assessment / Plan
Assessment / Plan
Ms. Mena Post is a 79 yo woman with hx COPD, HLD, NIDDM, admitted with chest discomfort and elevated troponin 0.108, baseline history of COPD. Cardiac catheterization revealed ostial LAD stenosis 70 to 75%, 70 to 75% mid stenosis, ostial
ramus, mid 50 to 60% with luminal irregularities of circumflex and RCA, EF 50 to 55%. She is s/p cardiac cath on 08/27 showing multivessel disease. Evaluated by CT surgery, recommended proceeding with PCI.
Assessment/plan:
#NSTEMI
-S/p left heart cath with PCI of mid and ostial LAD 09/02/2024
-S/p cardiac cath 08/28 which showed multivessel coronary artery disease.
-CT chest negative for thoracic aortic aneurysm but coronary artery calcifications present.
-Uninterrupted DAPT with daily baby aspirin and Brilinta 90 mg twice daily for first 30 days then clopidogrel after 30 days (patient's choice due to costs of Brilinta).
-Continue Toprol, and LENS CEMENTER statin.
-Follow PTT.
-Outpatient cardiac rehab thereafter.
-Cardiology appreciated.
#Intermittent diarrhea
-Cholestyramine 4mg daily ordered, Pt takes at home but not since admission.
-Will monitor.
#COPD
-No active wheezing on exam.
-Continue DuoNebs and rescue inhalers
#Essential HTN
-Continue LENS CEMENTER Amlodipine
#NIDDM
-A1c 6.5.
-Continue glimepiride, patient not able to afford SGLT2.
-Continue low ISS with Accu-Cheks
#Anxiety and depression
-Continue Zoloft
#Hyperlipidemia
-On Pitavastatin LENS CEMENTER
Diet: Carb controlled.
DVT PPx Heparin gtt
GI PPx: Protonix
CODE STATUS: FULL CODE
Data:
Chest CT 08/27/2024:
There is no evidence for thoracic aortic aneurysm.
Mild to moderate calcification of the thoracic aorta as described.
Mild calcification of the aortic valve. Moderate calcification in the region of the sinotubular junction.
Coronary artery calcifications are present.
Moderate to severe changes of emphysema. Mild bilateral apical pleuroparenchymal scarring, stable.
CXR 08/26/2024:
No acute disease of the chest.
TTE 08/26/2024:
Normal left ventricular size. Low normal left ventricular systolic function. No
regional wall motion abnormalities are seen. LV ejection fraction is 50-55% by
volumetric assessment. Mild concentric left ventricular hypertrophy. Normal
diastolic function.
Normal right ventricular size and function.
No significant valvular pathology
Cardiac Cath 08/28/24
1. Left dominant circulation.
2. Ostial LAD has eccentric 70 to 75% stenosis. Mid LAD has calcified hazy tubular 70 to 75% stenosis which is likely culprit of presenting NSTEMI.
3. The ramus intermedius branch is a medium caliber vessel. There is eccentric ostial 50% stenosis. Midportion of the vessel has 50 to 60% tubular stenosis.
4. The left circumflex artery is a large-caliber, dominant vessel which gives rise to 2 major obtuse marginal branches, the left posterolateral branch and the left posterior descending artery. There is mild diffuse atherosclerotic plaque.
5. Normal LVEDP
Anticipated Discharge: Today
Subjective/Interval History
-
Date of Service: September 03, 2024
Have seen and examined patient. Patient seen walking with PT, complained that she is out of breath but denies chest pain. While at rest, patient reports that she is feeling better and was in no acute distress. No acute shortness of breath at
rest, no fever or chills.
Objective Data
-
Labs:
Laboratory Results
09/03/24
03:58
WBC 5.9
Hgb 11.9 L
Hct 36.4 L
Plt Count 258
Sodium 135
Potassium 3.9
Chloride 107
Carbon Dioxide 21 L
BUN 7
Creatinine 0.8
Glucose 75
Calcium 9.3
Vital Signs:
Vital Signs
Temp Pulse Resp BP Pulse Ox
98.3 F 65 16 133/51 97
09/03/24 03:47 09/03/24 03:47 09/03/24 03:47 09/03/24 03:47 09/03/24 03:47
I&O
09/01/24 09/02/24 09/03/24
06:59 06:59 06:59
Intake Total 480 / 480
Balance 480 / 480
Review of Systems
-
History Source: Patient
All other systems: Reviewed and negative
Physical Exam
-
General: Well Developed and Comfortable
HEENT: Normocephalic
Respiratory: Clear to Auscultation and Decreased Breath Sounds
Cardiac: Regular Rhythm and S1/S2
GI: Soft
Musculoskeletal: No Cyanosis, No Edema and Normal Gait & Station
Skin: Warm and Dry
Neuro: Awake, Alert, Oriented and AO x 3
Psych: Calm
Data Reviewed
-
Labs: Labs Reviewed by me and Discussed with Physician
[2024-09-03] MEDS: SPIRIVA RESPIMAT 2.5 MCG 2 PUFF INH (07:17)
[2024-09-03] MEDS: VENTOLIN NEBULES 2.5 MG INH (07:17)
[2024-09-03] MEDS: SYMBICORT 80/4.5 MCG INHALER 2 PUFF INH (07:17)
[2024-09-03 07:34] VITALS: BP 125/106
[2024-09-03 07:36] VITALS: BP 121/56
[2024-09-03] MEDS: MAGNESIUM OXIDE 500 MG PO (07:47)
[2024-09-03] MEDS: LOW STRENGTH ASPIRIN 81 MG PO (07:47)
[2024-09-03] MEDS: TOPROL XL 12.5 MG PO (07:47)
[2024-09-03] MEDS: ZOLOFT 25 MG PO (07:47)
[2024-09-03] MEDS: NORVASC 5 MG PO (07:47)
[2024-09-03] MEDS: PROTONIX 40 MG PO (07:47)
[2024-09-03] MEDS: BRILINTA 90 MG PO (07:48)
[2024-09-03] MEDS: QUESTRAN 4 GRAM PO (07:48)
[2024-09-03] MEDS: VITAMIN D3 (cholecalciferol) 25 MCG PO (07:48)
[2024-09-03] MEDS: AMARYL 2 MG PO (07:53)
[2024-09-03 08:01] LABS: Glucose - Point of Care 104 mg/dl (70-99)
[2024-09-03] MEDS: NOVOLOG FLEXPEN-LOW RESISTANCE SC ×2 (08:01→12:22)
[2024-09-03 09:27] VITALS: BP 110/45
[2024-09-03 09:46] VITALS: BP 110/45; PULSE 77; O2SAT 98
--- NOTE | 2024-09-03 10:55 | W.PN.CARDCBS ---
Addendum entered and electronically signed by Maral Bailey DO 09/03/24 17:20:
The Packaging Mechanic's note was reviewed and I agree with the note.
Comment: Patient was discharged prior to me seeing her however I reviewed advanced practice professionals note and agree that she was stable for discharge home with outpatient cardiac follow-up.
Original Note:
Today's Communication / Plan
-
Stable for d/c to home
51 min in face to face and coordination of care
Impression / Plan
-
PCP: Dr. Olmstead
Card: None
Pulm: Dr. Marcus
Impression:
Presented 08/26/2024 with chest pain, shortness of breath and abnormal troponin
NSTEMI, troponin peaked 2.61
CAD
70-75% ostial LAD and 79-75% hazy mid LAD lesions by cath 08/27/24
s/p 2.75 x 26 mm Medtronic Frederica BELEN 09/02/24. Previously identified ostial LAD and mid circumflex lesions with negative IFR assessments and no intervention performed 09/02/2024
COPD
Emphysema
Former smoker
HTN
Hyperlipidemia
Hyperglycemia, DM 2
Echo 08/06/2022: EF 50 to 55%, no WMA, no significant valvular abnormalities
Echo 08/26/2024: EF 50 to 55%. Mild concentric LVH. No significant valvular disease.
Plan:
-Patient had 2.75 mm Frederica BELEN to mid LAD lesion on 09/03/24. Previously identified ostial LAD lesion was checked with IFR assessment which indicated it was not a flow-limiting lesion and so no intervention performed. There is also a previously
identified mid circumflex lesion that also underwent IFR assessment which was negative for flow-limiting lesion and so again no intervention performed.
-New to aspirin and Brilinta. Patient will likely not be able to afford Brilinta beyond the 1st month so will see patient in office in less than 1 month and make a plan to transition to Plavix if needed.
-New to Protonix 40 mg daily
-New to Toprol XL 12.5 mg BID this admission and tolerating all doses thus far. No wheezing
-LDL 99 and new to atorvastatin 40 mg daily. Patient was taking pitavastatin 2 mg daily prior to admission and this has been stopped
-Will not start lisinopril prior to d/c due to intermittent hypotension. Reassess in the office.
-Outpatient dose of amlodipine 5 mg daily has been continued
-HgbA1c 6.5%, was on glimepiride as outpatient.
-D/C to home 09/03/24. E-scribed Brilinta, atorvastatin, Toprol XL and Protonix. Cardiology f/u on the chart.
HPI 08/26/24: Patient came to ER today with CP that started at 0530 this morning and cardiology is consulted after her troponin was found to be elevated. 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
her on trazodone BID, but patient instead took in PM only and half the dose that her PCP prescribed and initially this helped her insomnia, but then she felt tired all of the time and the insomnia returned so about a week and a half ago she stopped
trazodone. Patient says that 6 days ago she was walking in the grocery store and had central to left-sided chest pain that improved with resting. She was SOB as well. Patient does not normally have chest pain walking the grocery store and this was
unusual. Patient then able to drive to a friend's home and then home, but has not tried to walk a long distance since that episode. Patient was awake through last night with insomnia and started with central to left-sided chest pain around 0530 this
morning and it lasted for an hour and she called her family who called 911. Paramedics gave patient NTG SL x1 that resolved pain completely and pain had not recurred. Initial ECG in the ER without ST elevations and Troponin was 0.108. Heparin gtt
started. Patient also reporting intermittent dependent edema described as worse when she is on her feet and better after laying down. Also reports weight gain and bloating, but no orthopnea.
Progress Note - Technology Manager
Subjective
Date of Service: September 03, 2024
Some BOONE with walking the halls, but no chest pain
Objective
Labs:
09/03/24 03:58
09/03/24 03:58
Labs
Hgb 11.9 g/dL (12.0-16.0) L 09/03/24 03:58
Hct 36.4 % (37.0-47.0) L 09/03/24 03:58
Plt Count 258 10^3/uL (130-400) 09/03/24 03:58
PT 13.3 Sec (11.4-14.6) 08/28/24 08:25
INR 0.98 08/28/24 08:25
APTT Cancelled 09/02/24 11:30
Sodium 135 mmol/L (135-145) 09/03/24 03:58
Potassium 3.9 mmol/L (3.5-5.1) 09/03/24 03:58
BUN 7 mg/dl (7-17) 09/03/24 03:58
Creatinine 0.8 mg/dL (0.6-1.0) 09/03/24 03:58
Glucose 75 mg/dl (70-99) 09/03/24 03:58
Vital Signs and I&O:
Vital Signs
Temp Pulse Resp BP Pulse Ox
97.7 F 70 20 110/45 96
09/03/24 07:34 09/03/24 10:00 09/03/24 07:34 09/03/24 09:27 09/03/24 08:42
Vital Signs
Temp Pulse Resp BP Pulse Ox
97.7 F 70 20 110/45 96
09/03/24 07:34 09/03/24 10:00 09/03/24 07:34 09/03/24 09:27 09/03/24 08:42
Intake & Output
02/25/09/02/24 09/03/24 09/04/24
06:59 06:59 06:59 06:59
Intake Total 480 / 480
Balance 480 / 480
Physical Exam
Physical Exam
GEN: NAD. AAOx3
HEENT: EOMI, MMM
LUNGS: RA. No audible wheeze
CV: SR on tele.
EXT: Right radial without hematoma or ecchymosis. No edema B/L
NEURO: Gross non-focal
SKIN: No rash
[2024-09-03 11:32] VITALS: BP 125/58
--- NOTE | 2024-09-03 12:14 | W.DCSUMMARY ---
Discharge Summary
Discharge Data
Date of Admission: 08/26/24
Date of Discharge: 09/03/24
-
Pending Results: No
Hospital Course
Discharging Physician : Jennifer Hill MD ; Sonido Johnson MD
Disposition : Home
Primary care physician : Wood Olmstead DO
Principal Discharge diagnosis :
NSTEMI, Angioplasty with stent to LAD
COPD/emphysema
Hypertension
Diabetes
High cholesterol
Anxiety
Hospital Course : 79-year-old female with PMH of COPD, hyperlipidemia, [id number] diabetes mellitus, who presented to the hospital with 6 days history of worsening fatigue, insomnia and new onset of left-sided chest pain with shortness of
breath. Her initial ECG in the ED was significant for ST elevations and troponin of 0.108. She was started on heparin drip and admitted for further evaluation and management. She was recently treated for COPD exacerbation and had just finished a
course of steroids at the time of admission.
NSTEMI: Her initial EKG revealed sinus rhythm with first-degree AV block and had troponin continued to rise and peaked at 2.610. She was started on heparin drip and maintained on aspirin, high intensity statin, amlodipine and metoprolol. TTE was
remarkable for low normal left ventricular systolic function but normal EF with mild concentric LV hypertrophy. Subsequent cardiac catheterization revealed multivessel coronary artery disease. CT surgery was consulted for CABG, and pulmonology was
consulted for worsening shortness of breath. Sequential PFTs revealed worsening DLCO of 21% predicted, compared to previous. Patient was also evaluated by thoracic surgery and was deemed not a candidate for traditional CABG due to her poor lung
function. A discussion was had with patient and her daughter for PCI instead of CABG given the risks involved. Patient was continued on heparin drip, aspirin, Toprol and statin and PCI was scheduled for the next 2 days given availability and CT
surgery scheduled backup. Patient underwent an uncomplicated PCI of mid and ostial LAD on 09/02/2024 and was observed overnight in the IVU.
COPD/emphysema: She continued to receive DuoNebs and Trelegy Ellipta for pulmonary optimization. Before discharge, I called and got an appointment for patient to follow-up with her residential energy auditor on 09/08/1909/24/2024.
Non-insulin dependent diabetes mellitus: While in the hospital, her hemoglobin A1c was 6.5. She was maintained on sliding scale coverage and her glimepiride was held. The dunham of SGLT2 inhibitors was also checked but patient could not afford the
medication. At discharge, patient's glimepiride was restarted.
Patient has been evaluated with an ECG which showed normal sinus rhythm, and was seen by cardiology. The changes in her medication has been explained to her and entered here in the discharge summary for patient to take an uninterrupted dual
antiplatelet therapy with baby aspirin and Brilinta 90 mg for the first 30 days and switch to clopidogrel in place of the Brilinta due to cost. Patient has been instructed to follow-up with her pvc loader, her residential energy auditor, her primary care
physician and outpatient cardiac rehab center.
Condition on discharge: Awake, alert and oriented x3, answer question properly, able to make own decision and take care of activities of daily living, speech clear and comprehensive, continent of the bowel and bladder, ambulate with minimal
assistance.
Important imaging findings :
Chest CT 08/27/2024:
There is no evidence for thoracic aortic aneurysm.
Mild to moderate calcification of the thoracic aorta as described.
Mild calcification of the aortic valve. Moderate calcification in the region of the sinotubular junction.
Coronary artery calcifications are present.
Moderate to severe changes of emphysema. Mild bilateral apical pleuroparenchymal scarring, stable.
CXR 08/26/2024:
No acute disease of the chest.
TTE 08/26/2024:
Normal left ventricular size. Low normal left ventricular systolic function. No
regional wall motion abnormalities are seen. LV ejection fraction is 50-55% by
volumetric assessment. Mild concentric left ventricular hypertrophy. Normal
diastolic function.
Normal right ventricular size and function.
No significant valvular pathology
Cardiac Cath 08/28/24
1. Left dominant circulation.
2. Ostial LAD has eccentric 70 to 75% stenosis. Mid LAD has calcified hazy tubular 70 to 75% stenosis which is likely culprit of presenting NSTEMI.
3. The ramus intermedius branch is a medium caliber vessel. There is eccentric ostial 50% stenosis. Midportion of the vessel has 50 to 60% tubular stenosis.
4. The left circumflex artery is a large-caliber, dominant vessel which gives rise to 2 major obtuse marginal branches, the left posterolateral branch and the left posterior descending artery. There is mild diffuse atherosclerotic plaque.
5. Normal LVEDP
Procedure findings :
Left heart cath with coronary intervention 09/02/2024:
1. Left dominant circulation.
2. Successful percutaneous coronary artery invention of a calcified hazy tubular 75% stenosis with one 2.75 x 26 mm Medtronic [place] drug-eluting stent, postdilated with a 2.75 x 15 mm Flexcom Euphora balloon at 16 lynne distally and 22 lynne proximally with
an excellent angiographic result.
3. Ostial LAD has a eccentric 60 to 70% stenosis which is IFR negative at 0.91.
4. Mid left circumflex with diffuse up to 50% stenosis which is IFR negative at 0.98.
5. Normal LVEDP at 13 mmHg.
6. Ramus intermedius branch has an eccentric ostial 50% stenosis and a 50 to 60% tubular stenosis in the midportion. This is a small to medium caliber vessel.
RECOMMENDATIONS
1. Uninterrupted dual antiplatelet therapy with daily baby aspirin and Brilinta 90 mg twice daily for the first 30 days. Given cost of the Brilinta, patient prefers to switch to clopidogrel after the first 30 days as an outpatient.
2. Aggressive management of cardiovascular risk factors.
3. Wean radial band per protocol.
4. Optimization of medical therapy for underlying coronary artery disease.
5. Eventual referral for outpatient cardiac rehab.
Discharge Plan
-
Patient Disposition: Home with Home Care
Discharge Diagnosis/Procedures: NSTEMI, Angioplasty with stent to LAD
COPD/emphysema
Hypertension
Diabetes
High cholesterol
Anxiety
Condition: Fair
Diet: Low Cholesterol and Diabetic, Carb Controlled
Driving Restrictions: No driving for 24 hours
Bathing Restrictions: OK to Shower
Other Services: Cardiac Rehab
Stand Alone Forms: DC Instructions- Cath/EP Lab
Referrals:
[facility]. Cardiac Rehab [Outside] - 10/15/24 1:00 pm
(Cardiac Rehab Orientation appointment is on 10/15/24 at 1PM
The Cardiac Rehab gym is located on the first floor of the [facility].)
Patricia Cowart PA-C [Specified Professional Personl] - 09/16/24 2:20 pm
Leni Hurtado DO [Active] - 09/07/24 2:45 pm
Wood Olmstead DO [Family Provider] - in less than 1 week
Additional Discharge Medication Instructions: -Start taking an aspirin 81 mg daily. You will take an aspirin a day for forever and you should not interrupt therapy without talking to cardiology first.
-Take Brilinta 90 mg twice a day to help stent heal in place. If Brilinta becomes cost prohibitive then we can transition to Plavix (clopidogrel) at your office visit.
-Stop taking pitavastatin, it has been replaced with atorvastatin to help lower cholesterol levels.
Prescriptions:
New
Brilinta 90 mg Tablet
90 mg PO BID Qty: 60 11RF
atorvastatin 40 mg Tablet
40 mg PO QPM Qty: 30 11RF
pantoprazole 40 mg Tablet,Delayed Release (Dr/Ec)
40 mg PO DAILY Qty: 30 11RF
magnesium oxide 500 mg magnesium Tablet
500 mg PO DAILY Qty: 30 11RF
aspirin 81 mg Tablet,Chewable
81 mg PO DAILY Qty: 30 0RF
metoprolol succinate 25 mg Tablet Extended Release 24 Hr
12.5 mg PO BID Qty: 30 11RF
Continued
amlodipine 5 mg tablet
5 mg PO DAILY 30 Days Qty: 30 0RF
glimepiride 2 mg Tablet
2 mg PO DAILY
sertraline 25 mg Tablet
25 mg PO DAILY
cholestyramine (with sugar) 4 gram Powder In Packet
4 g PO DAILY
cholecalciferol (vitamin D3) [Vitamin D3] 25 mcg (1,000 unit) Tablet
25 mcg PO DAILY
Trelegy Ellipta 100-62.5-25 mcg Blister With Device
1 inh INHALATION DAILY
albuterol sulfate 2.5 mg /3 mL (0.083 %) solution for nebulization
2.5 mg inhalation R Q4
albuterol sulfate 90 mcg/actuation HFA aerosol inhaler
1 puff INHALATION R Q4HPRN PRN (Reason: sob/wheezing)
Discontinued
pitavastatin calcium 2 mg Tablet
2 mg PO DAILY
Discharge Orders:
Discharge Patient (As Directed); Ordered 09/03/24
Ordered By: Liz Rodriguez
Care Plan Goals
Care Plan Goals:
Problem: Readiness for enhanced knowledge related to diagnosis and treatment plan
Goal: Understand your diagnosis and treatment plan needs, including medications if applicable.
Instructions: Know your diagnosis, underlying causes and treatment plan options, including medications if applicable. Consult with your health care team to learn about your diagnosis and treatment plan, including medications if applicable.
Discharge Date and Time
Discharge Date/Time: 09/03/24 14:44
Print Language: YAKUT
[2024-09-03 12:21] LABS: Glucose - Point of Care 86 mg/dl (70-99)
[2024-09-03] MEDS: VENTOLIN NEBULES INH (13:29)
--- NOTE | 2024-09-03 14:38 | PTCARENOTE ---
Discharge instructions reviewed with Pt and her daughter, they expressed understanding. [facility] was called to make sure they had the prescriptions ready that were ordered for the Pt and the pharmacist verified that they had them and are ready for pickup.
== END 2024-09-03 14:44 | disposition home or self-care (01) | DRG 322 ==
LOC: IVU 14:12
PROVIDERS: Emergency Medicine; Internal Medicine Interventional Cardiology; Nurse Practitioner Adult Health; Physician Assistant Medical; Student in an Organized Health Care Education/Training Program; ADMITTING PHYSICIAN Student in an Organized Health Care Education/Training Program; ATTENDING PHYSICIAN Hospitalist; CONSULT PHYSICIAN Internal Medicine Cardiovascular Disease; CONSULT PHYSICIAN Internal Medicine Critical Care Medicine; CONSULT PHYSICIAN Thoracic Surgery (Cardiothoracic Vascular Surgery); EMERGENCY PHYSICIAN Emergency Medicine; FAMILY PHYSICIAN Family Medicine
PROC: 4A023N7 Measurement of Cardiac Sampling and Pressure, Left Heart, Percutaneous Approach (ICD-10-PCS; 2024-08-27)
PROC: B2111ZZ Fluoroscopy of Multiple Coronary Arteries using Low Osmolar Contrast (ICD-10-PCS; 2024-08-27)
PROC: 4A033BC Measurement of Arterial Pressure, Coronary, Percutaneous Approach (ICD-10-PCS; 2024-09-02)
PROC: 027034Z Dilation of Coronary Artery, One Artery with Drug-eluting Intraluminal Device, Percutaneous Approach (ICD-10-PCS; 2024-09-02)
DX: I21.4 Non-ST elevation (NSTEMI) myocardial infarction (principal); J43.2 Centrilobular emphysema; E78.00 Pure hypercholesterolemia, unspecified; I10 Essential (primary) hypertension; F32.A Depression, unspecified; G47.00 Insomnia, unspecified; I25.10 Atherosclerotic heart disease of native coronary artery without angina pectoris; F41.9 Anxiety disorder, unspecified; I35.8 Other nonrheumatic aortic valve disorders; E11.65 Type 2 diabetes mellitus with hyperglycemia; I44.0 Atrioventricular block, first degree; I70.0 Atherosclerosis of aorta; D64.9 Anemia, unspecified; R19.7 Diarrhea, unspecified; E87.6 Hypokalemia; Z60.2 Problems related to living alone; Z66 Do not resuscitate; Z90.49 Acquired absence of other specified parts of digestive tract; Z79.84 Long term (current) use of oral hypoglycemic drugs; Z79.51 Long term (current) use of inhaled steroids; Z79.52 Long term (current) use of systemic steroids; Z87.891 Personal history of nicotine dependence; Z88.1 Allergy status to other antibiotic agents; Z88.0 Allergy status to penicillin; Z88.5 Allergy status to narcotic agent; Z82.49 Family history of ischemic heart disease and other diseases of the circulatory system; Z80.42 Family history of malignant neoplasm of prostate; Z86.16 Personal history of COVID-19; Z80.1 Family history of malignant neoplasm of trachea, bronchus and lung; Z83.3 Family history of diabetes mellitus; Z90.710 Acquired absence of both cervix and uterus
CPT/HCPCS: 94727; 94729; 36600; 71046; 71250; 76937; 80048; 80053; 80061; 82805; 82962; 83036; 83735; 83880; 84484; 85025; 85027; 85347; 85610; 85730; 88738; 93005; 93306; 93458; 93799; 93880; 94060; 94640; 96374; 96375; 97163; 97166; 97530; 99152; 99153; 99285; C1725; C1769; C1874; C1887; C1894; C9600; Q9967

== ENCOUNTER 2024-10-28 17:58 | Outpatient (RCR) | payer MEDICARE, OTHER, SELFPAY ==
[2024-10-15 14:48] LABS: Glucose - Point of Care 113 mg/dl (70-99)
[2024-10-15 15:16] LABS: Glucose - Point of Care 116 mg/dl (70-99)
[2024-10-21 17:41] LABS: Glucose - Point of Care 269 mg/dl (70-99)
[2024-10-21 18:30] LABS: Glucose - Point of Care 221 mg/dl (70-99)
[2024-10-23 17:32] LABS: Glucose - Point of Care 106 mg/dl (70-99)
[2024-10-23 18:37] LABS: Glucose - Point of Care 81 mg/dl (70-99)
[2024-10-26 17:15] LABS: Glucose - Point of Care 88 mg/dl (70-99)
[2024-10-26 18:02] LABS: Glucose - Point of Care 103 mg/dl (70-99)
[2024-10-28 17:37] LABS: Glucose - Point of Care 87 mg/dl (70-99)
[2024-10-28 17:55] LABS: Glucose - Point of Care 96 mg/dl (70-99)
[2024-10-28 18:32] LABS: Glucose - Point of Care 105 mg/dl (70-99)
== END 2024-10-28 23:59 | disposition home or self-care (01) ==
LOC: CRHB 17:58
PROVIDERS: ATTENDING PHYSICIAN Internal Medicine Interventional Cardiology; FAMILY PHYSICIAN Family Medicine
DX: I21.4 Non-ST elevation (NSTEMI) myocardial infarction (principal); I25.2 Old myocardial infarction; Z95.5 Presence of coronary angioplasty implant and graft; I25.10 Atherosclerotic heart disease of native coronary artery without angina pectoris
CPT/HCPCS: 82962; G0422; G0423

== ENCOUNTER 2024-11-13 17:39 | Outpatient (RCR) | payer MEDICARE, OTHER, SELFPAY ==
[2024-11-13 17:32] LABS: Glucose - Point of Care 232 mg/dl (70-99)
== END 2024-11-13 23:59 | disposition home or self-care (01) ==
LOC: CRHB 17:39
PROVIDERS: ATTENDING PHYSICIAN Internal Medicine Interventional Cardiology; FAMILY PHYSICIAN Family Medicine
DX: I21.4 Non-ST elevation (NSTEMI) myocardial infarction (principal); Z95.5 Presence of coronary angioplasty implant and graft; I25.10 Atherosclerotic heart disease of native coronary artery without angina pectoris; I25.2 Old myocardial infarction
CPT/HCPCS: 82962; G0422; G0423

== ENCOUNTER → 2025-03-18 10:53 | Outpatient (REF) | payer MEDICARE, OTHER, SELFPAY | LOC: REG 10:53 | PROVIDERS: ATTENDING PHYSICIAN Nurse Practitioner Adult Health | DX: J44.9 Chronic obstructive pulmonary disease, unspecified (principal) | CPT/HCPCS: 71046 ==

== ENCOUNTER 2025-05-22 00:12 | Emergency (ER) | payer MEDICARE, OTHER, SELFPAY ==
[2025-05-22] VITALS (8 sets, daily range): BP systolic 111–150; BP diastolic 56–86; BMI 27.8
--- NOTE | 2025-05-22 01:03 | ED.GENMED ---
History of Present Illness
<YURY Farnsworth - Last Filed: 05/22/25 20:11>
General
Chief Complaint: Back Pain
Source: patient
Exam Limitations: none
Time Seen by Provider: 05/22/25 00:55
Nursing documentation reviewed up to this point in time: agreed with
History of Present Illness
History of Present Illness:
Patient is an 80-year-old female who presents to the ER for evaluation. She reports her sciatica has been acting up and because of this she has been walking bent over. Now she complains of spasm type pain in her left mid back. She reports she
has had this multiple times in the past this feels ago muscle spasm. She reports valium has worked in the past. Currently her sciatica is not actiing up.
Past History
<YURY Farnsworth - Last Filed: 05/22/25 20:11>
Past History
ED Past Medical History: COPD, Hypercholesterolemia and NIDDM
ED Past Surgical History: Appendectomy, Cholecystectomy, Gynecological and Tonsilectomy
Social History
Tobacco: Former smoker
Alcohol: Occasional
Drug: None
Personal:
Living: with family
Employment: Retired
Family History
Family History: Other (Noncontributory)
Phy Exam
<YURY Farnsworth - Last Filed: 05/22/25 20:11>
General Physical Exam
General Presentation: no apparent distress
General age: appears stated age
General Skin: warm and dry
General Habitus: normal
General Mental: alert
General Hydration: appears well hydrated
Cardiovascular Exam
Cardiovascular Exam: regular rate/rhythm, no murmur and normal peripheral pulses
Pulmonary Exam
Pulmonary Exam: lungs clear and no respiratory distress
Neurological Exam
Neurological Exam: alert and oriented x3
Musculoskeletal Exam
Musculoskeletal Exam: full ROM and other (Tender to the left mid back thoracic region no midline tenderness no rash; pain with bending twisting turning on exam )
Skin Exam
Skin Exam: normal color and warm/dry
Psychiatric Exam
Psychiatric Exam: normal mood/affect
Course
<YURY Farnsworth - Last Filed: 05/22/25 20:11>
Orders/Labs/Results
Orders:
Orders
05/22/25 01:37
Dexamethasone Sod Phosphate [Decadron] 10 mg IV NOW STA
Lidocaine [Lidocaine 4% Patch] 1 patch TOPICAL NOW STA
Apply Lidocaine patch(s) to:: left back
diazePAM [Valium Injection] 2 mg IV NOW STA
05/22/25 02:56
HYDROmorphone [Dilaudid] 0.5 mg IV NOW STA
Ondansetron Injectable [Zofran] 4 mg IV NOW STA
Vital Signs
Initial and Last Documented VS:
Initial Vital Signs
Temp Pulse Resp BP Pulse Ox
97.7 F 87 16 147/75 98
05/22/25 00:15 05/22/25 00:15 05/22/25 00:15 05/22/25 00:15 05/22/25 00:15
Last Documented Vital Signs
Temp Pulse Resp BP Pulse Ox
97.7 F 70 20 111/56 97
05/22/25 00:15 05/22/25 04:39 05/22/25 04:39 05/22/25 04:40 05/22/25 04:30
[facility] consulted with Physician
[facility] consulted with physician?: Yes
Name of Physician Consulted: elma
<Pavan Mcnamara DO - Last Filed: 05/22/25 04:36>
Orders/Labs/Results
Orders:
Orders
05/22/25 01:37
Dexamethasone Sod Phosphate [Decadron] 10 mg IV NOW STA
Lidocaine [Lidocaine 4% Patch] 1 patch TOPICAL NOW STA
Apply Lidocaine patch(s) to:: left back
diazePAM [Valium Injection] 2 mg IV NOW STA
05/22/25 02:56
HYDROmorphone [Dilaudid] 0.5 mg IV NOW STA
Ondansetron Injectable [Zofran] 4 mg IV NOW STA
Vital Signs
Initial and Last Documented VS:
Initial Vital Signs
Temp Pulse Resp BP Pulse Ox
97.7 F 87 16 147/75 98
05/22/25 00:15 05/22/25 00:15 05/22/25 00:15 05/22/25 00:15 05/22/25 00:15
Last Documented Vital Signs
Temp Pulse Resp BP Pulse Ox
97.7 F 70 20 111/56 97
05/22/25 00:15 05/22/25 04:39 05/22/25 04:39 05/22/25 04:40 05/22/25 04:30
<YURY Farnsworth - Last Filed: 05/22/25 20:11>
MDM/Problems Addressed
Differential Diagnosis Includes:
Not limited to muscle spasm history of sciatica
MDM/Problems Addressed:
Patient has had sciatica however because of the sciatica she reports she has bending over now feels that she is a muscle spasm in her left back. Patient was given Valium as well as pain medication in the ER with improvement feels well enough to go
home. Not limited to
Chronic conditions affecting care:
Chronic back issues
<YURY Farnsworth - Last Filed: 05/22/25 20:11>
*Pulse Oximetry
SaO2: 97
Oxygen Mode of Delivery: Room air
Patient hypoxic: no
*Critical Care Note
Total Time (30-74mins, 75-104mins- exclusive of procedures): Not Applicable
ED Attending Note
<YURY Farnsworth - Last Filed: 05/22/25 20:11>
-
Portions of this chart may have been created with voice recognition software.� Occasional wrong word or��sound alike� substitutions may have occurred due to the inherent limitations of voice recognition software.
<Pavan Mcnamara DO - Last Filed: 05/22/25 04:36>
ED Attending Note
Patient seen and examined by attending physician: Yes
I performed the substantive portion of visit, reviewed & personally made and approve the management plan that is documented in note by myself or JAVIER.: Yes
ED Attending Note:
I have seen and evaluated the patient with a [id number] encounter. I have spoken to the advance practicer provider and involved in the medical history, the physical exam, medical decision making.
Evaluation and management service: agree unless noted differently below.
Results interpretation: agree unless noted differently below.
Focused HPI: 80-year-old female presenting with low back pain. This has been ongoing for several days. She does have a history of sciatica. 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 She is having pain rating down her legs
Physical exam: Sitting in bed comfortably. Both legs neurovascularly intact
Medical Decision Making: By the time I evaluate the patient, she had already received Valium which appears to help with her spasm. She feels comfortable going home. She denies bowel or bladder dysfunction or rectal numbness
Discharge Plan
Departure
Patient Disposition: Home (Routine Discharge)
Date of Disposition: 05/22/25
Time of Disposition: 04:36
Patient with high blood pressure during this ER visit?: Yes
Condition: Fair
Covid-19: Not Applicable
Discharge Problem:
Muscle spasm
Instructions: Muscle spasm - ED (DC), BLOOD PRESSURE
Prescriptions:
New
diazepam [Valium] 5 mg tablet
5 mg PO TID PRN (Reason: muscle spasm) Qty: 10 0RF
No Action
amlodipine 5 mg tablet
5 mg PO DAILY 30 Days Qty: 30 0RF
glimepiride 2 mg Tablet
2 mg PO DAILY
sertraline 25 mg Tablet
25 mg PO DAILY
cholestyramine (with sugar) 4 gram Powder In Packet
4 g PO DAILY
cholecalciferol (vitamin D3) [Vitamin D3] 25 mcg (1,000 unit) Tablet
25 mcg PO DAILY
Trelegy Ellipta 100-62.5-25 mcg Blister With Device
1 inh INHALATION DAILY
albuterol sulfate 2.5 mg /3 mL (0.083 %) solution for nebulization
2.5 mg inhalation R Q4
albuterol sulfate 90 mcg/actuation HFA aerosol inhaler
1 puff INHALATION R Q4HPRN PRN (Reason: sob/wheezing)
Brilinta 90 mg Tablet
90 mg PO BID Qty: 60 11RF
atorvastatin 40 mg Tablet
40 mg PO QPM Qty: 30 11RF
pantoprazole 40 mg Tablet,Delayed Release (Dr/Ec)
40 mg PO DAILY Qty: 30 11RF
magnesium oxide 500 mg magnesium Tablet
500 mg PO DAILY Qty: 30 11RF
aspirin 81 mg Tablet,Chewable
81 mg PO DAILY Qty: 30 0RF
metoprolol succinate 25 mg Tablet Extended Release 24 Hr
12.5 mg PO BID Qty: 30 11RF
Referrals:
NONE,* [Family Provider, Internal Medicine]
Activity Restrictions/Additional Instructions:
As discussed a prescription for Valium was sent to pharmacy take as directed every 8 hours. You May take Tylenol as needed as well. Warm moist heat to your back several times a day. Follow-up with your family doctor in the next 2 days and return
if any worsening of symptoms.
Interventions
Interventions:
*Risk Screen - Suicide Last Done: 05/22/25 00:15
*General Assessment Last Done: 05/22/25 00:30
*Neglect/Abuse Screening Last Done: 05/22/25 00:15
*ED- Fall Risk Assessment Last Done: 05/22/25 00:15
*ED COVID-19 Vaccine History Last Done: 05/22/25 00:15
*ED Influenza Vaccine History Last Done: 05/22/25 00:15
*Nursing Disposition Last Done: 05/22/25 04:59
ED-Musculoskeletal Assessment Last Done: 05/22/25 00:30
Discharge Date and Time
Discharge Date/Time: 05/22/25 05:00
Print Language: MALTESE
[2025-05-22] MEDS: LIDOCAINE 4% PATCH 1 PATCH TOPICAL (01:54)
[2025-05-22] MEDS: DECADRON 10 MG IV (01:54)
[2025-05-22] MEDS: VALIUM INJECTION 2 MG IV (01:54)
[2025-05-22] MEDS: ZOFRAN 4 MG IV (03:11)
[2025-05-22] MEDS: DILAUDID 0.5 MG IV (03:11)
== END 2025-05-22 05:00 | disposition home or self-care (01) ==
LOC: EMR 00:12
PROVIDERS: EMERGENCY PHYSICIAN Student in an Organized Health Care Education/Training Program
DX: M62.830 Muscle spasm of back (principal); E11.9 Type 2 diabetes mellitus without complications; E78.00 Pure hypercholesterolemia, unspecified; J44.9 Chronic obstructive pulmonary disease, unspecified; Z90.49 Acquired absence of other specified parts of digestive tract; Z87.891 Personal history of nicotine dependence
CPT/HCPCS: 96374; 96375; 99284